=== PATIENT | male | born 1945 | race Caucasian/White ===

== ENCOUNTER → 2017-05-01 06:36 | Outpatient (CLI) | payer MEDICARE, SELFPAY ==
[2017-05-01 10:16] LABS: BUN 20 mg/dL (7-18); Creatinine, Serum 1.15 mg/dL (0.70-1.30); EST Glomerular Filtration Rate 67 mL/min (>60); Glucose 123 mg/dL (74-106)
[2017-05-01 10:17] LABS: ALB/GLOB Ratio 1.1 RATIO (0.9-2.4); AST(SGOT) 22 U/L (15-37); Alanine Aminotransfer ALT/SGPT 46 U/L (16-61); Albumin, Serum 3.6 g/dL (3.2-5.0); Alkaline Phosphatase 110 U/L (45-117); Anion Gap 8 (5-15); BUN/Creat Ratio 17.4 RATIO (10-20); Calcium,Total 8.5 mg/dL (8.5-10.1); Chloride 106 mmol/L (98-107); Est Glom Filt Rate - Afr Amer 81 mL/min (>60); Globulin 3.3 g/dL (2.2-4.2); PSA,Total- Diagnostic 0.48 ng/mL (0.0-4.0); Potassium 4.5 mmol/L (3.5-5.1); Protein, Total 6.9 g/dL (6.4-8.2); Sodium Level 141 mmol/L (136-145); Thyroid Stim Hormone (TSH) 1.06 uIU/mL (0.358-3.74)
--- NOTE | 2017-05-01 11:11 | STRESSREP_ITS ---
Stress Test Report Exercise myocardial perfusion stress test. 72-year-old man with a history of chest pain. Stress protocol: Resting EKG demonstrates sinus rhythm with a rate of 62 bpm. Resting blood pressure is 160/82 mmHg. The patient exercised according to the regular Edward protocol for total duration of 6 minutes and 31 seconds. The maximum heart rate attained was 139 bpm which was 93% of the maximum predicted heart rate the maximum workload attained was 7.7 metabolic equivalents. At rest there were no ST or T-wave changes noted suggest ischemia at peak exercise there was mild less than [address] depression noted in leads II and III with rapid reversal back to upsloping. These did not meet the criteria for ischemia. Patient however developed mild chest tightness and moderate dyspnea at peak exercise. The resting blood pressure was 160/82 mmHg with a peak blood pressure of 220/82 mmHg. Occasional premature ventricular complexes were noted. Myocardial perfusion protocol. 914.3 mCi of technetium 99m sestamibi was injected at rest. The patient exercised according to the Edward protocol for 6-1 /2 minutes attaining 7.7 metabolic equivalents and at peak exercise 44.7 mCi of technetium 99m sestamibi was injected. Stress images were obtained. Stress and rest images were reconstructed and compared in the short axis vertical long and horizontal long axis. Gated images were also obtained. Perfusion SPECT analysis: ReView of the stress images demonstrate uniform uptake of tracer noted in all areas of the myocardium the resting images appear to demonstrate a similar patent with no areas of reversibility noted to suggest ischemia. No previous infarct is noted. Gated SPECT analysis: The gated ejection fraction is noted to be 63%. Conclusion: Normal exercise myocardial perfusion stress test with no evidence of ischemia. Chest pain and angina cannot be completely excluded. Preserved ejection fraction.
== END ==
PROVIDERS: Family Provider Family Medicine; PCP Family Medicine; Visit Provider Family Medicine
DX: R07.9 Chest pain, unspecified (principal); E11.9 Type 2 diabetes mellitus without complications
CPT/HCPCS: 36415; 78452; 80053; 84153; 84443; 93017; A9500; A4216

== ENCOUNTER → 2017-10-09 09:36 | Outpatient (CLI) | payer MEDICARE, SELFPAY ==
[2017-10-09 12:10] LABS: Anion Gap 9 (5-15); BUN 21 mg/dL (7-18); BUN/Creat Ratio 15.3 RATIO (10-20); Calcium,Total 8.7 mg/dL (8.5-10.1); Chloride 108 mmol/L (98-107); Creatinine, Serum 1.37 mg/dL (0.70-1.30); EST Glomerular Filtration Rate 54 mL/min (>60); Est Glom Filt Rate - Afr Amer 66 mL/min (>60); Glucose 122 mg/dL (74-106); Potassium 4.8 mmol/L (3.5-5.1); Sodium Level 140 mmol/L (136-145)
== END ==
PROVIDERS: Family Provider Family Medicine; PCP Family Medicine; Visit Provider Family Medicine
DX: I10 Essential (primary) hypertension (principal)
CPT/HCPCS: 36415; 80048

== ENCOUNTER → 2017-11-03 10:08 | Outpatient (CLI) | payer MEDICARE, SELFPAY ==
[2017-11-03 12:05] LABS: PSA,Total- Diagnostic 0.44 ng/mL (0.0-4.0)
== END ==
PROVIDERS: Family Provider Family Medicine; PCP Family Medicine; Visit Provider Urology
DX: C61 Malignant neoplasm of prostate (principal)
CPT/HCPCS: 36415; 84153

== ENCOUNTER 2018-04-18 09:03 | Inpatient (IN) | payer MEDICARE, SELFPAY ==
--- NOTE | 2018-03-26 13:22 | HP.PCM_ITS ---
History and Physical DATE OF SURGERY: 04/18/2018 SCHEDULED PROCEDURE: right total hip arthroplasty HISTORY OF PRESENT ILLNESS: This is a 73-year-old male who has been having ongoing pain in his right hip for several years. He states it has increased over the past several weeks. Patient states the pain can reach as high as a 6/10. He has increased pain with driving, sitting for extended periods of time, and standing. Pain is intermittent, aching, sharp, and sore. He does complain of right groin pain. Patient states the pain does wake him at night. He does have start up pain. Patient states he has difficult time with activities of daily living including getting dressed as well as leisure activities such as woodworking and golfing. He has tripped and stumbled secondary to his right hip. He feels unsafe going on long drives due to the pain. Patient has tried oral medications consisting of Aleve with minimal relief. Patient denies previous surgery on the right hip. Patient currently denies chest pain, shortness of breath, fevers chills, or recent infections. After failing conservative measures and discussing treatment options at Dr. Marck Gorman, the patient would like to proceed with a right total hip arthroplasty. We are obtaining surgical clearance from the primary care physician. REVIEW OF SYSTEMS: ROS: Const: Denies anorexia, change in appetite, fever, hard of hearing, vision problems and weight change. CV: Denies chest pain, heart murmur, irregular heartbeat and peripheral vascular disease. Resp: Denies asthma, cough, pneumonia, sleep apnea, SOB, tuberculosis and wheezing. GI: Denies constipation, diarrhea, difficulty swallowing, heartburn, nausea, bloody stools and vomiting. : Urinary: denies incontinence. Musculo: Denies leg swelling, limp, trouble walking and weakness. Skin: Denies Raynaud's, history of shingles and tattoo. Neuro: Denies ambulatory dysfunction, dizziness, numbness/tingling and tremor. Psych: Denies anxiety, depression, insomnia, mental illness and stress. Gerard/Lymph: Denies anemia, bleeding/bruising tendency and past transfusion. Reviewed, no changes. 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 SOCIAL HISTORY: SH: Marital: .Occupation: Retired.Work Status: Retired.Hand Dominance: Left- handed. Personal Habits: Cigarette Use: Former - 1 PACK PER DAY / 34 YEARS.Alcohol: Denies use.Drug Use: Denies Use.Enjoy Exercising: Exercises 1-3 X/Week. Reviewed, no changes. VITALS: Ht: 71 Wt: 229lb Wt k.874 BMI: 31.9 BP: 140/57 Pulse: 89 Resp: 16 T: 96.9 T: 36.1C ALLERGIES: No Known Drug Allergy MEDICATIONS: Atorvastatin Calcium 80 mg daily, Niacin 500 mg tid, Folic Acid 400 mcg daily, Joint Soother , Lisinopril 10 mg 1 po qd, Metformin HCL ER (Mod) 500 mg 1po qday, Aleve 220 mg 1po qday PRE-OP EXAM: General appearance:NORMAL Other: Eyes: Conjunctivae and lids: NORMAL Pupils: ERR Ears, Nose, Mouth, and Throat: NORMAL Other: Inspection of lips, teeth and gums: NORMAL Other: Neck: Examination of neck: no masses noted. Respiratory: Assessment of respiratory effort: NORMAL Other: Auscultation of lungs: clear to auscultation no wheezes, rhonchi or rales. Cardiovascular: Auscultation of heart: regular rate and rhythm, no murmurs, gallops or rubs. Exam of carotid arteries: NORMAL Other: Gastrointestinal: Exam of abdomen: soft, nontender, nondistended bowel sounds present. PHYSICAL EXAMINATION: Patient walks with an antalgic gait. Patient has increased pain with range of motion of the right hip. Right hip flexion 80, internal rotation to neutral, external rotation 25. Sensation intact to light touch. Neurovascularly intact. IMAGING STUDIES: X-rays of the right hip reveal joint space narrowing with subchondral sclerosis and osteophyte formation consistent with severe osteoarthritis. IMPRESSION: 1. Severe right hip osteoarthritis 2. Hypertension 3. Type 2 diabetes mellitus 4. History of kidney stones 5. Psoriasis 6. History of prostate cancer in 2014 PLAN: Dr. Marck Gorman did discuss and review with the patient all treatment options including surgical versus nonsurgical options. Patient does wish to proceed with the above-stated procedure. Potential risks, benefits, and complications of the procedure were discussed in detail including but not limited to , infection, nerve and blood vessel damage, persistent pain, numbness, tingling, paresthesias, blood clot, pulmonary embolism, and requirement for possible further surgery. The patient expressed full understanding and has no further questions for the doctor. Patient does agree to proceed with the above-stated procedure and has signed the surgery consent form. This dictation was created using voice recognition software. Phonetic and/or grammatical errors may exist.. ___ I have re-examined the patient. There are no clinical changes since date of exam. ___ See progress notes for changes. ___ Dictated on admission Date: Time: Signature:
[2018-03-26 14:16] VITALS: BP 136/67; PULSE 74; RESP 18; TEMP 37.1; O2SAT 97; BMI 32.1
--- NOTE | 2018-03-26 14:34 | SDCEKG_ITS ---
Test Reason : Blood Pressure : / mmHG Vent. Rate : 071 BPM Atrial Rate : 071 BPM P-R Int : 184 ms QRS Dur : 102 ms QT Int : 388 ms P-R-T Axes : 048 003 032 degrees QTc Int : 421 ms Sinus rhythm with Premature atrial complexes RSR' or QR pattern in V1 suggests right ventricular conduction delay Borderline ECG Confirmed by DHRUV CRUZ, IAN ([id number]), manager editorial FRANCIS KOO ([id number]) on 03/27/2018 9:41:52 AM Referred By: Marck Gorman Confirmed By:IAN BARTLETT MD
[2018-03-26 15:26] LABS: Absolute Neutrophil Count 6.1 X10^3/uL (2.0-7.7); Anion Gap 9 (5-15); BUN 25 mg/dL (7-18); BUN/Creat Ratio 18.4 RATIO (10-20); Basophil# 0.01 X10^3/uL; Basophil% 0.1 % (0-1); Calcium,Total 8.3 mg/dL (8.5-10.1); Chloride 107 mmol/L (98-107); Creatinine, Serum 1.36 mg/dL (0.70-1.30); EST Glomerular Filtration Rate 55 mL/min (>60); Eosinophil# 0.13 X10^3/uL; Eosinophils% 1.7 % (0-5); Est Glom Filt Rate - Afr Amer 66 mL/min (>60); Estimated Creatinine Clearance 52.29 ml/min; Glucose 181 mg/dL (74-106); Hematocrit 41.7 % (40-54); Hemoglobin 13.5 g/dl (13.0-16.5); Lymphocyte % 10.5 % (19-41); Mean Corp Hgb Conc 32.4 g/gl (32-36); Mean Corpuscular Hgb 29.7 pg (27.0-32.0); Mean Corpuscular Volume 91.9 fL (80-94); Mean Platelet Vol. 11.1 fl (6.2-12.0); Monocyte# 0.65 X10^3/uL; Monocyte% 8.5 % (0-10); Neutrophil # 6.06 X10^3/uL (2.7-7.7); Neutrophil % 79.2 % (47-70); Platelet Count 139 K/mm3 (150-450); Potassium 3.9 mmol/L (3.5-5.1); RBC Distribution Width CV 12.4 % (11.6-14.6); RBC Distribution Width SD 41.7 fl (35.1-43.9); Red Blood Count 4.54 M/mm3 (4.6-6.2); Sodium Level 142 mmol/L (136-145); White Blood Count 7.7 K/mm3 (4.4-11.0)
[2018-03-26 15:33] LABS: POSITIVE COUNT NO; POSITIVE DIFFERENTIAL NO; POSITIVE MORPHOLOGY NO
[2018-03-26 16:31] LABS: Hemoglobin A1c 7.2 % (4.2-6.3)
[2018-03-29 14:19] LABS: Albumin, Serum 3.9 g/dL (3.2-5.0)
[2018-04-18] VITALS (11 sets, daily range): BP systolic 87–150; BP diastolic 48–73; PULSE 59–97; RESP 16–18; TEMP 36.2–36.9; O2SAT 92–100; BMI 32.1
[2018-04-18] MEDS: Scopolamine 1mg/72hr Patch 1 PATCH TD (07:15)
[2018-04-18] MEDS: Acetaminophen 500 MG Tablet 1000 MG PO ×2 (09:34→22:20)
[2018-04-18] MEDS: Celecoxib 200 MG Capsule 400 MG PO (09:34)
[2018-04-18] MEDS: oxyCODONE HCl Cr 10 MG Tablet PO (09:36)
[2018-04-18 09:50] LABS: Bedside Glucose 131 mg/dL (70-110)
[2018-04-18] MEDS: Lactated Ringers 1,000 ML 999 ML IV ×2 (09:50→13:08)
[2018-04-18] MEDS: Cefazolin 2 GM in 0.9% Normal Saline 100 ML IV (10:33)
--- NOTE | 2018-04-18 11:15 | RAD_ITS ---
STUDY: X-RAY - RIGHT HIP REASON FOR EXAM: Male, 73 years old. Anterior right hip replacement. TECHNIQUE: 2 views of the hip. COMPARISON: None. FINDINGS: Intraoperative fluoroscopic services provided for right anterior hip replacement. RAD/Hip 1 view with Pelvis IMPRESSION: Intraoperative fluoroscopic services provided for right anterior hip replacement. Electronically Signed: Howard Montejo MD at 14:08 EST , Service support ,
--- NOTE | 2018-04-18 12:06 | PCM.OPRPT ---
Report of Operation Date of Procedure: 04/18/18 Pre-Operative Diagnosis: Right hip primary asked arthritis, hypertrophic arthritis Post-Operative Diagnosis: Right hip primary asked arthritis, hypertrophic arthritis Surgery/Procedure Performed:: Right direct anterior total hip replacement Description of Surgical Findings:: Stable hip with equal leg lengths broaching machine repairer: Afshin Sauer Type of Anesthesia:: Spinal Anesthesiologist: Jose Guajardo Special Medications: 2 g Ancef, 1 g TXA at incision, 1 g TXA closure, 10 mg Decadron, joint cocktail (5 mg Duramorph, 30 mL of 0.5% Ropivicaine, 1000 units of epinephrine, 30 mg of Toradol) Specimen's removed: Bony cuts Estimated Blood Loss (mL): 200 Fluids Replaced: 1200 mL crystalloid Description of Procedure: Components used: 1. Accolade 2 Stephen femoral stem size 5 127? 2. Stephen trident 2 acetabular shell size 56 mm 3. Stephen X3 polyethylene F 4. [place] Biolox delta 36mm, 2.5mm femoral head Brief history operative indications: 73 yo M who failed conservative measures for their hip osteoarthritis. X-rays were consistent with osteoarthritis including joint space narrowing, osteophyte formation and subchondral cysts. Total hip replacement was discussed with the patient with risks and benefits including but not limited to blood loss, DVTs, PEs, neurovascular damage, dislocation, general risks of anesthesia including loss of life. Patient demonstrated an understanding medical clearance is obtained the patient was consented for surgery. Procedure: On the date of procedure the patient's R hip was marked in the preoperative area. Patient was then taken back to the operating room where anesthesia assumed control of the C-spine and airway and administered anesthetic. Patient was transferred to the operating table and placed in the supine position. The hips were placed at the break of the bed and a sacral bump was placed. The R lower extremity was then prepped out in a sterile fashion using chlorhexidine while the surgeon scrubbed. The PA was vital in the positioning of the patient. Upon reentering the room the R lower extremity was draped in the standard orthopedic fashion and the incision was marked. A timeout was called and everyone agreed upon the side, the site, the procedure be performed, antibody given, and patient's identity. At this time incision was made through skin, subcutaneous tissue, and fat down to fascia. The fascia was then incised and the TFL was retracted laterally. A retractor was placed on the lateral border of the femoral neck. Attention was directed to the inferior portion of the approach and all crossing vessels were identified and appropriately coagulated. A retractor was then placed on the medial portion of the femoral neck. The anterior capsule was then cleared of all soft tissue and then H shaped capsulotomy was made. The retractors were then placed inside the capsule. The femoral neck was identified and a cleanup cut was made. At this time a power corkscrew was used to remove the femoral head. Attention was then turned toward the acetabulum where the soft tissues were appropriately retracted and the acetabulum was sequentially reamed to 56 mm. A 56 mm cup was then selected and impacted into place. Acetabular liner was impacted into place and locking mechanism was verified. The position of the acetabular cup was then verified under live fluoroscopy. Attention was then turned to the femur. Soft tissue releases on the medial and lateral femoral neck were appropriately done, the leg was externally rotated and lateralized. A Castellano retractor was placed medially and proximally to the greater trochanter this allowed appropriate visualization and exposure of the femoral canal. Rongeour was then used to remove excess lateral bone. A canal finder and entry broach were used to open the proximal canal. Once we verified we were down the femoral canal we subsequently broached up to a size 5 femur. The appropriate neck was placed in the previously selected head was trialed with a 2.5 mm neck. Traction was pulled and the hip was reduced with internal rotation. Once it was appropriately reduced and stability was checked. There was minimal shuck, equal leg lengths and appropriate stability with hyperextension and external rotation as well as with 90? flexion and internal rotation. Fluoroscopy was then also used to verify the position of the components and leg lengths using the contralateral side for comparison. The trial components were then dislocated the proximal femur was again exposed and the components were removed from the wound. The final components were verified and opened. The wound was copiously irrigated out with normal saline. The acetabulum was checked for any residual debris. The final components were placed and impacted. Traction and internal rotation were again used to reduce the hip. After adequate reduction the hip remained stable with appropriate leg lengths. The final components were once again checked with live fluoroscopy and were found to be satisfactory. The wound was then copiously irrigated with normal saline once more, and hemostasis was obtained. Closure was then done using #1 Vicryl runner to close the fascia. A 2-0 vicryl interuppted sutures were used to close the subcutaneous skin. A 3-0 Monocryl and Steri-Strips were used for final skin closure. A Silverlon dressing was placed. Patient was awakened by anesthesia and transferred to the [facility]. Patient was then transferred to the PACU for recovery. Postoperative plan: Patient will get 24 hours postop antibiotics. Patient will get in-house physical therapy and will be weight-bear as tolerated. Patient will follow up in office in 2 weeks for a wound check and x-rays. Grafts/Implants Used: Stephen Accolade 2, Trident 2 - Complications None - Admit VTE Documentation VTE Present on Admission: No VTE Mechan Device Prophylaxis: SCD's, Thigh High JENNIFER Hose VTE Pharm Prophylaxis ordered?: Yes
--- NOTE | 2018-04-18 12:09 | OP.PCM_ITS ---
Report of Operation Date of Procedure: 04/18/18 Pre-Operative Diagnosis: Right hip primary asked arthritis, hypertrophic a rthritis Post-Operative Diagnosis: Right hip primary asked arthritis, hypertrophic arthritis Surgery/Procedure Performed:: Right direct anterior total hip replacement Description of Surgical Findings:: Stable hip with equal leg lengths shank sander: Afshin Sauer Type of Anesthesia:: Spinal Anesthesiologist: Jose Guajardo Special Medications: 2 g Ancef, 1 g TXA at incision, 1 g TXA closure, 10 mg Decadron, joint cocktail (5 mg Duramorph, 30 mL of 0.5% Ropivicaine, 1000 units of epinephrine, 30 mg of Toradol) Specimen's removed: Bony cuts Estimated Blood Loss (mL): 200 Fluids Replaced: 1200 mL crystalloid Description of Procedure: Components used: 1. Accolade 2 [place] femoral stem size 5 127? 2. [place] trident 2 acetabular shell size 56 mm 3. Stephen X3 polyethylene F 4. [place] Biolox delta 36mm, 2.5mm femoral head Brief history operative indications: 73 yo M who failed conservative measures for their hip osteoarthritis. X-rays were consistent with osteoarthritis including joint space narrowing, osteophyte formation and subchondral cysts. Total hip replacement was discussed with the patient with risks and benefits including but not limited to blood loss, DVTs, PEs, neurovascular damage, dislocation, general risks of anesthesia including loss of life. Patient demonstrated an understanding medical clearance is obtained the patient was consented for surgery. Procedure: On the date of procedure the patient's R hip was marked in the preoperative area. Patient was then taken back to the operating room where anesthesia assumed control of the C-spine and airway and administered anesthetic. Patient was transferred to the operating table and placed in the supine position. The hips were placed at the break of the bed and a sacral bump was placed. The R lower extremity was then prepped out in a sterile fashion using chlorhexidine while the surgeon scrubbed. The PA was vital in the positioning of the patient. Upon reentering the room the R lower extremity was draped in the standard orthopedic fashion and the incision was marked. A timeout was called and everyone agreed upon the side, the site, the procedure be performed, antibody given, and patient's identity. At this time incision was made through skin, subcutaneous tissue, and fat down to fascia. The fascia was then incised and the TFL was retracted laterally. A retractor was placed on the lateral border of the femoral neck. Attention was directed to the inferior portion of the approach and all crossing vessels were identified and appropriately coagulated. A retractor was then placed on the medial portion of the femoral neck. The anterior capsule was then cleared of all soft tissue and then H shaped capsulotomy was made. The retractors were then placed inside the capsule. The femoral neck was identified and a cleanup cut was made. At this time a power corkscrew was used to remove the femoral head. Attention was then turned toward the acetabulum where the soft tissues were appropriately retracted and the acetabulum was sequentially reamed to 56 mm. A 56 mm cup was then selected and impacted into place. Acetabular liner was impacted into place and locking mechanism was verified. The position of the acetabular cup was then verified under live fluoroscopy. Attention was then turned to the femur. Soft tissue releases on the medial and lateral femoral neck were appropriately done, the leg was externally rotated and lateralized. A Castellano retractor was placed medially and proximally to the greater trochanter this allowed appropriate visualization and exposure of the femoral canal. Rongeour was then used to remove excess lateral bone. A canal finder and entry broach were used to open the proximal canal. Once we verified we were down the femoral canal we subsequently broached up to a size 5 femur. The appropriate neck was placed in the previously selected head was trialed with a 2.5 mm neck. Traction was pulled and the hip was reduced with internal rotation. Once it was appropriately reduced and stability was checked. There was minimal shuck, equal leg lengths and appropriate stability with hyperextension and external rotation as well as with 90? flexion and internal rotation. Fluoroscopy was then also used to verify the position of the components and leg lengths using the contralateral side for comparison. The trial components were then dislocated the proximal femur was again exposed and the components were removed from the wound. The final components were verif ied and opened. The wound was copiously irrigated out with normal saline. The acetabulum was checked for any residual debris. The final components were placed and impacted. Traction and internal rotation were again used to reduce the hip. After adequate reduction the hip remained stable with appropriate leg lengths. The final components were once again checked with live fluoroscopy and were found to be satisfactory. The wound was then copiously irrigated with normal saline once more, and hemostasis was obtained. Closure was then done using #1 Vicryl runner to close the fascia. A 2-0 vicryl interuppted sutures were used to close the subcutaneous skin. A 3-0 Monocryl and Steri-Strips were used for final skin closure. A Silverlon dressing was placed. Patient was awakened by anesthesia and [facility] Patient was then transferred to the PACU for recovery. Postoperative plan: Patient will get 24 hours postop antibiotics. Patient will get in-house physical therapy and will be weight-bear as tolerated. Patient will follow up in office in 2 weeks for a wound check and x-rays. Grafts/Implants Used: Stephen Accolade 2, Trident 2 - Complications None - Admit VTE Documentation VTE Present on Admission: No VTE Mechan Device Prophylaxis: SCD's, Thigh High JENNIFER Hose VTE Pharm Prophylaxis ordered?: Yes
--- NOTE | 2018-04-18 12:43 | RAD_ITS ---
STUDY: X-RAY - RIGHT HIP REASON FOR EXAM: Male, 73 years old. Total hip replacement. TECHNIQUE: 2 views of the hip. COMPARISON: Comparison is made with prior examination done earlier in the day. FINDINGS: The patient is status post right total hip replacement. There is good alignment. Postoperative soft tissue changes. RAD/Hip Min 2 Views (Portable) IMPRESSION: Status post right total hip replacement. There is good alignment. Postoperative soft tissue changes. Electronically Signed: Howard Montejo MD at 14:39 EST , Service support ,
[2018-04-18 13:06] LABS: Bedside Glucose 149 mg/dL (70-110)
[2018-04-18] MEDS: Famotidine 20 MG Tablet PO (15:28)
[2018-04-18] MEDS: Lactated Ringers 1,000 ML 125 ML IV (15:42)
--- NOTE | 2018-04-18 16:56 | PCM.PROGNOTE ---
Objective: Consulted for right total hip medical management. Pt underwent surgery this AM. He is doing well. Has ambulated. No pain at all at the moment. No numbness or tingling. No N/V. No SOB/Cough. Encouraged IS use. No fever or chills. Plans to go home tomorrow for o/p PT @ [facility]. - Physical Exam General: Alert, Oriented x3, Cooperative HEENT: Atraumatic, PERRLA, EOMI, Normocephalic Neck: Supple, No JVD, Negative Carotid Bruits Lungs: Clear to auscultation, Normal air movement Cardiovascular: Regular rate, No murmurs Abdomen: Bowel Sounds Present, Soft, Non Tender Extremities: No edema, Capillary Refill Less than 3 Seconds Skin: No rashes, No breakdown Musculoskeletal: No Tenderness to Palpation of Joints or Extremities Neurological: Cranial nerves II-XII grossly intact Psych/Mental Status: Normal Affect, Appropriate Vital Signs Temp Pulse Resp BP Pulse Ox 97.8 F 59 L 18 109/51 L 95 04/18/18 14:42 04/18/18 14:42 04/18/18 16:08 04/18/18 14:42 04/18/18 16:08 Oxygen Delivery Method Room Air Weight: 229 lb 15.074 oz Body Mass Index (BMI) 32.1 Finger Stick Blood Glucose 149 Intake and Output for Last 24 Hours 04/16/18 04/17/18 04/18/18 23:59 23:59 23:59 Intake Total 1800 / 1800 Balance 1800 / 1800 POC Glucose 04/18/18 04/18/18 13:01 09:27 POC Glucose 149 H 131 H Medical Necessity - Tobacco Use Smoking Status: Former smoker Tobacco Use: Cigarettes Assessment/Plan All Active Problems (Last Updated 07/14/17 @ 10:33 by Chantelle Butcher) URI, acute (Acute) 1. Right hip osteoarthritis s/p right total hip POD#0 - Per Dr. Gorman. Resting comfortably with no pain in chair. Ambulated today, somewhat wobbly. No complaints. Outpatient physical therapy at discharge. Otherwise management per Dr. Gorman. Perioperative cefazolin, tranexamic acid 2. DMt2 - resume metformin at DC. SSI. A1C 7.2. 3. CKDIII - presumed based on records of renal function. BMP in AM. NSAIDs with caution. 4. HTN - stable 5. HLD - on statin 6. Hx Prostate CA 7. Hx Renal calculi 8. Hx Psoriasis DVT ppx: aspirin 81 bid per ortho Thank you for the opportunity to participate in the care of this patient. This patient was seen by Román Quezada PA-C under the supervision of Dr. Ness.
[2018-04-18 17:00] LABS: Bedside Glucose 100 mg/dL (70-110)
[2018-04-18] MEDS: Glucerna Shake 120 ML LIQUID PO (17:00)
[2018-04-18] MEDS: Aspirin 81 MG TAB.CHEW PO (17:01)
[2018-04-18] MEDS: Lisinopril 20 MG Tablet PO (18:33)
[2018-04-18] MEDS: Cefazolin 1 GM/50 ML BAG IV (18:33)
[2018-04-18] MEDS: Senna/Docusate Sodium 1 Tablet 2 TABLET PO (22:20)
[2018-04-18] MEDS: Atorvastatin Calcium 40 MG Tablet PO (22:21)
[2018-04-18 22:35] LABS: Bedside Glucose 115 mg/dL (70-110)
[2018-04-19] MEDS: oxyCODONE 5 MG Tablet PO ×3 (00:11→11:49)
[2018-04-19] MEDS: Ketorolac 15 MG/ML Vial IV (00:11)
[2018-04-19] MEDS: Lactated Ringers 1,000 ML 125 ML IV (00:17)
[2018-04-19 00:25] VITALS: BP 156/56; PULSE 79; RESP 18; TEMP 36.6; O2SAT 98
[2018-04-19 01:45] VITALS: BP 136/50; PULSE 95; RESP 16; TEMP 36.7; O2SAT 95
[2018-04-19] MEDS: Cefazolin 1 GM/50 ML BAG IV (03:06)
[2018-04-19 06:04] LABS: Hematocrit 32.4 % (40-54); Hemoglobin 10.5 g/dl (13.0-16.5); Mean Corp Hgb Conc 32.4 g/gl (32-36); Mean Corpuscular Hgb 30.1 pg (27.0-32.0); Mean Corpuscular Volume 92.8 fL (80-94); Mean Platelet Vol. 10.8 fl (6.2-12.0); Platelet Count 102 K/mm3 (150-450); RBC Distribution Width CV 12.3 % (11.6-14.6); RBC Distribution Width SD 40.6 fl (35.1-43.9); Red Blood Count 3.49 M/mm3 (4.6-6.2); White Blood Count 8.7 K/mm3 (4.4-11.0)
[2018-04-19 06:07] LABS: Scan Indicated on CBC? Y/N NO
[2018-04-19 06:15] LABS: Anion Gap 10 (5-15); BUN 21 mg/dL (7-18); BUN/Creat Ratio 15.1 RATIO (10-20); Calcium,Total 7.7 mg/dL (8.5-10.1); Chloride 103 mmol/L (98-107); Creatinine, Serum 1.39 mg/dL (0.70-1.30); EST Glomerular Filtration Rate 53 mL/min (>60); Est Glom Filt Rate - Afr Amer 65 mL/min (>60); Estimated Creatinine Clearance 51.16 ml/min; Glucose 113 mg/dL (74-106); Potassium 4.8 mmol/L (3.5-5.1); Sodium Level 138 mmol/L (136-145)
[2018-04-19] MEDS: Acetaminophen 500 MG Tablet 1000 MG PO ×2 (06:29→14:05)
[2018-04-19 06:35] VITALS: BP 169/73; PULSE 93; RESP 18; TEMP 36.6; O2SAT 97
[2018-04-19 06:46] LABS: Bedside Glucose 125 mg/dL (70-110)
[2018-04-19] MEDS: Famotidine 20 MG Tablet PO (07:59)
[2018-04-19] MEDS: hydroCHLOROthiazide 12.5mg 12.5 MG PO (07:59)
[2018-04-19] MEDS: Folic Acid 1 MG Tablet PO (07:59)
[2018-04-19] MEDS: Aspirin 81 MG TAB.CHEW PO (07:59)
[2018-04-19] MEDS: Lisinopril 20 MG Tablet PO (07:59)
[2018-04-19] MEDS: Meloxicam 7.5 MG Tablet PO (07:59)
[2018-04-19] MEDS: Senna/Docusate Sodium 1 Tablet 2 TABLET PO (07:59)
--- NOTE | 2018-04-19 09:26 | PN.ORTHO_ITS ---
Subjective: The patient was sitting in bedside chair upon examination. Patient denies any chest pain, shortness of breath, dizziness, lightheadedness, nausea or vomiting, or calf pain. Pain is controlled on medications. No adverse overnight events. Patient has tolerated physical therapy very well. Pain is been controlled. Patient does wish to try to go home today.. Objective: Vital signs stable and afebrile. Patient is able to plantarflex and dorsiflex actively. Sensation is intact to light touch to saphenous, sural, superficial and deep peroneal, and tibial distribution. Dressing is clean dry and intact. Negative Homans bilaterally, negative signs and symptoms of DVT. - Physical Exam General: Alert, Oriented x3, Cooperative, No apparent distress Vital Signs Temp Pulse Resp BP Pulse Ox 97.9 F 93 18 169/73 H 97 04/19/18 06:35 04/19/18 06:35 04/19/18 06:35 04/19/18 06:35 04/19/18 06:35 Oxygen Delivery Method Room Air Weight: 104.3 kg Body Mass Index (BMI) 32.1 Finger Stick Blood Glucose 149 Intake and Output for Last 24 Hours 04/17/18 04/18/18 04/19/18 23:59 23:59 23:59 Intake Total 1800 / 1800 4214 / 4214 Output Total 200 / 200 Balance 1800 / 1800 4014 / 4014 Laboratory Tests Past 24 Hrs 04/19/18 04/19/18 05:15 05:15 WBC 8.7 RBC 3.49 L Hgb 10.5 L Hct 32.4 L MCV 92.8 MCH 30.1 MCHC 32.4 RDW 12.3 RDW Differential 40.6 Plt Count 102 L MPV 10.8 Sodium 138 Potassium 4.8 Chloride 103 Carbon Dioxide 25.0 Anion Gap 10 BUN 21 H Creatinine 1.39 H Estim Creat Clear Calc 51.16 Est GFR (MDRD) Af Amer 65 Est GFR (MDRD) Non-Af 53 L BUN/Creatinine Ratio 15.1 Glucose 113 H Calcium 7.7 L POC Glucose 04/19/18 04/18/18 04/18/18 06:39 22:25 16:50 POC Glucose 125 H 115 H 100 04/18/18 04/18/18 13:01 09:27 POC Glucose 149 H 131 H Medical Necessity - Tobacco Use Smoking Status: Former smoker Tobacco Use: Cigarettes Assessment/Plan All Active Problems (Last Updated 07/14/17 @ 10:33 by Chantelle Butcher) URI, acute (Acute) 1. S/P direct anterior right total hip arthroplasty POD #1 2. Continue Pain Medications: Tylenol and OxyIR 3. DVT Prophylaxis: Aspirin 81 mg twice daily with food for 4 weeks postoperatively 4. PT/OT: Weightbearing as tolerated 5. H & H: 10.5/32.4, asymptomatic 6. Encouraged Incentive Spirometry 7. Continue postoperative medical management per medicine 8. Disposition: Plan will be for discharge home today. Prescriptions will be E scribed to [facility]. Patient will follow-up per postop instructions..
--- NOTE | 2018-04-19 09:51 | DCINST_ITS ---
Discharge Diet: 1800 Calorie Control Diet Discharge Activity: May Not Drive - while taking narcotic pain medications. May shower in (days): 1 - Turned dressing away from water Ice area for (Minutes): 20 - Every 1-2 hours while awake Weight Bearing Status: Weight bearing as tolerated Elevate: Operative Extremity Additional Activity Instructions:: Wear elastic stockings for 2 weeks. DO NOT use alcohol with narcotic pain medication. DO NOT make important decisions while taking narcotic medication. If you have problems with taking your medication (rash, itching, nausea, etc.) call the office at once. Call your doctor if your incision/area has: Increased Pain/ Swelling, Increased Redness, Foul Smelling Discharge Call your doctor if you observe: Fever of 101 or Higher Remove Dressing in (days):: 4 - Okay to remove dressing on April 23, 2018 Additional Instructions: Follow [facility] postop instructions. Do not take glucosamine chondroitin for 2 weeks postoperatively. Do not take any other nonsteroidal anti-inflammatory while taking the meloxicam. Allergies/Adverse Reactions: Allergies No Known Allergies Allergy (Verified 03/26/18 14:07) Medications to take at Discharge Atorvastatin Calcium [Lipitor] 40 mg PO QHS 07/25/14 Folic Acid 800 mcg PO DAILY 07/25/14 Niacin [Niacin ER] 1,000 mg PO DAILY 07/25/14 metformin ER 500 mg tablet,extended release 24 hr 500 mg PO DAILY 90 Days #90 07/14/17 Lisinopril/Hydrochlorothiazide [Lisinopril-Hctz 20-12.5 mg Tab] 20 mg PO DAILY 03/26/18 Acetaminophen [Tylenol] 1,000 mg PO Q8 #90 tablet 04/19/18 Aspirin [Aspirin, Baby] 81 mg PO BIDCM #60 tab.chew 04/19/18 Famotidine [Pepcid] 20 mg PO DAILY #30 tablet 04/19/18 Meloxicam [Mobic] 7.5 mg PO BID #60 tablet 04/19/18 Oxycodone [Oxyir] 5 - 10 mg PO Q4H PRN PRN 5 Days #60 tablet 04/19/18 Senna/Docusate Sodium [Senokot-S] 2 tablet PO BID #20 tablet 04/19/18 The following prescriptions were given: Oxycodone [Oxyir] 5 - 10 mg PO Q4H PRN PRN 5 Days #60 tablet PRN Reason: Mod-Severe Pain (4-10/10) Acetaminophen [Tylenol] 1,000 mg PO Q8 #90 tablet Famotidine [Pepcid] 20 mg PO DAILY #30 tablet Aspirin [Aspirin, Baby] 81 mg PO BIDCM #60 tab.chew Meloxicam [Mobic] 7.5 mg PO BID #60 tablet Senna/Docusate Sodium [Senokot-S] 2 tablet PO BID #20 tablet Orders to be completed after discharge: Basic Metabolic Profile (BMP) Time Frame: 1 Week, Location: Laboratory Primary Care Physician: Danny Ramos MD [Primary Care Provider] - Please follow up with your Primary Care Physician in: 1 week, will get repeat BMP. Test Results: Test results from this visit will be discussed in further detail at your follow- up appointment, if applicable. Please Follow Up With: [facility] When: 04/23/18 @ 9:00 am Please Follow Up With: Juan A Osborne PA-C When: 05/02/18 @ 9:00 am
--- NOTE | 2018-04-19 10:35 | CASEMGMT ---
ISSA PEÑALOZA Face to Face with patient for initial transition planning/care coordination assessment. RN CM introduced self and role at [facility]. Patient sitting in chair, alert and oriented, at bedside. Patient willing to participate in assessment and is able to answer all questions appropriately. Care providers, pharmacy, and demographics verified. Patient wishes to discharge home and is setup with [facility] for outpatient therapy beginning on 04/23/18 with providing transportation. Patient states he has no further needs or concerns at this time. CM to follow for discharge planning needs that may arise. PCP: Richard Specialists: [facility]; wily Gorman Preferred Pharmacy: [facility] Insurance: FIRE1 [facility] Prescription Benefit: Yes Living Will/HPOA: None LNOK: Living Arrangements: Patient lives with in 1 story home with 3 steps to enter home with railing. Patient is independent at home. Transportation: DME/HHC: Patient has tub bench, raised toilet seat, cane, and walker. Denies use of oxygen, bipap, cpap, or nebulizer at home. No previous HHC. Disposition Plan: Patient to discharge home with outpatient therapy, family support, and follow-up plans in place. Mari NO, RN, CM
[2018-04-19] MEDS: Glucerna Shake 120 ML LIQUID PO (11:50)
[2018-04-19 11:51] LABS: Bedside Glucose 100 mg/dL (70-110)
--- NOTE | 2018-04-19 13:17 | PCA ---
therapy working with pt
--- NOTE | 2018-04-19 14:28 | PCM.PN.HOSP ---
Subjective: Patient with no acute events overnight per self and per nursing report however he has had mildly elevated blood pressures and per discussion with patient he had stopped his hydrochlorothiazide approximately 5 days prior to his surgery per his physician recommendation. Discussed patient current presentation with noted creatinine 1.39 with comparison from prior similar since summer of this year in addition to hemoglobin A1c 7.2% and he notes prior to this was in the 6 range and this is steadily been increasing. Patient notes he has been less active and less strict with lifestyle and diet parameters since onset of hip discomfort this past summer. Patient notes pain control has improved and is working well with therapy and eager for discharge to home. Patient denies fevers, chills, nausea, emesis, abdominal pain, chest pain or dyspnea. Objective: Physical Examination: General: awake, alert, oriented x 3 and cooperative, seated upright in bedside chair, in no apparent distress. Skin: normal color, turgor, no icterus, cyanosis, s/p R THR, dressing in place. HEENT: AT/NC, EOMI, PERRLA, MMM. Lungs: CTA bilaterally, moderate effort, mild decrease BL bases, no rales, ronchi or wheezing. Heart: Regular rate and rhythm; no gallop, rub audible. Abdomen: soft, obesity, NTTP, ND, normal BS. Extremities: no cyanosis, clubbing, s/p R THR, dressing in place. Neurological: patient awake, alert, oriented x 3; cognitive function intact; pupils equally reactive to light and accomodation; cranial nerves II-XII grossly normal, moving all 4 extremities although decreased RLE as expected given R THR, strength accordingly moderately globally decreased. Psychiatric: affect appears normal, no acute evidence of depressive or anxiety feelings. Vitals/I&O's: Vital Signs Temp Pulse Resp BP Pulse Ox 97.9 F 93 18 169/73 H 97 04/19/18 06:35 04/19/18 06:35 04/19/18 06:35 04/19/18 06:35 04/19/18 06:35 Oxygen Delivery Method Room Air Weight: 229 lb 15.074 oz Body Mass Index (BMI) 32.1 Finger Stick Blood Glucose 149 Intake and Output for Last 24 Hours 04/17/18 04/18/18 04/19/18 23:59 23:59 23:59 Intake Total 1800 / 1800 4214 / 4214 Output Total 200 / 200 Balance 1799 4014 / 4014 Laboratory Results 04/18/18 16:50: POC Glucose 100 04/18/18 22:25: POC Glucose 115 H 04/19/18 05:15: WBC 8.7, RBC 3.49 L, Hgb 10.5 L, Hct 32.4 L, MCV 92.8, MCH 30.1, MCHC 32.4, RDW 12.3, RDW Differential 40.6, Plt Count 102 L, MPV 10.8 04/19/18 05:15: Sodium 138, Potassium 4.8, Chloride 103, Carbon Dioxide 25.0, Anion Gap 10, BUN 21 H, Creatinine 1.39 H, Estim Creat Clear Calc 51.16, Est GFR (MDRD) Af Amer 65, Est GFR (MDRD) Non-Af 53 L, BUN/Creatinine Ratio 15.1, Glucose 113 H, Calcium 7.7 L 04/19/18 06:39: POC Glucose 125 H 04/19/18 11:42: POC Glucose 100 Current Medications Acetaminophen (Tylenol) 1,000 mg PO Q8 [facility] Last Admin: 04/19/18 14:05 Dose: 1,000 mg Aspirin (A[facility]in, Baby) [facility] Last Admin: 04/19/18 07:59 Dose: 81 mg Atorvastatin Calcium (Lipitor) 40 mg PO QHS [facility] Last Admin: 04/18/18 22:21 Dose: 40 mg Famotidine (Pepcid) 20 mg PO DAILY [facility] Last Admin: 04/19/18 07:59 Dose: 20 mg Folic Acid (Folic Acid) [facility] Last Admin: 04/19/18 07:59 Dose: 1 mg Hydrochlorothiazide () 12.5 mg PO DAILY [facility] Last Admin: 04/19/18 07:59 Dose: 12.5 mg Insulin Human Lispro (Humalog Kwikpen (Bkc)) 0 unit SC [facility]; Protocol Last Admin: 04/19/18 11:44 Dose: Not Given Ketorolac Tromethamine (Toradol) 15 mg IV Q6H PRN PRN PRN Reason: MILD-MOD PAIN (1-07/27) Stop: 04/23/18 07:05 Last Admin: 04/19/18 00:11 Dose: 15 mg Lisinopril (Zestril) 20 mg PO DAILY [facility] Last Admin: 04/19/18 07:59 Dose: 20 mg Meloxicam (Mobic) 7.5 mg PO BID [facility] Last Admin: 04/19/18 07:59 Dose: 7.5 mg Metformin HCl (Glucophage Xr) 500 mg PO DAILY@1700 [facility] Last Admin: 04/18/18 17:01 Dose: 500 mg Morphine Sulfate () 2 - 4 mg IV Q2H PRN PRN PRN Reason: SEVERE PAIN (6-10/10) Morphine Sulfate () 2 - 4 mg IV Q2H PRN PRN PRN Reason: SEVERE PAIN (6-10/10) Niacin (Niaspan) 1,000 mg PO DAILY@0800 [facility] Last Admin: 04/19/18 07:59 Dose: 1,000 mg Nutritional Formula (Lactose Free) (Glucerna Shake) 120 ml PO TIDCM [facility] Last Admin: 04/19/18 11:50 Dose: 120 ml Ondansetron HCl (Zofran) 4 mg IV Q8H PRN PRN PRN Reason: NAUSEA Oxycodone HCl (Oxyir) 5 - 10 mg PO Q4H PRN PRN PRN Reason: MOD-SEVERE PAIN (4-10/10) Last Admin: 04/19/18 11:49 Dose: 10 mg Promethazine HCl (Phenergan) 12.5 mg IM Q6H PRN PRN; Protocol PRN Reason: NAUSEA/VOMITING Senna/Docusate Sodium (Senokot-S, Natacha-Colace) 2 tablet PO BID [facility] Last Admin: 04/19/18 07:59 Dose: 2 tablet Sodium Chloride () 5 - 15 ml IV UD PRN PRN Reason: SALINE FLUSH Medical Necessity - Tobacco Use Smoking Status: Former smoker Tobacco Use: Cigarettes Assessment/Plan All Active Problems (Last Updated 07/14/17 @ 10:33 by Chantelle Butcher) URI, acute (Acute) The patient is a 73 y/o M w/ PMHx: Diabetes mellitus type II, HTN, HLD, CKD stage III, History of Prostate CA, History of Nephrolithiasis, Psoriasis, Severe OA R hip who presents to the [facility] on 04/18/18 for planned R THR per Dr. Gorman. (1) Severe Osteoarthritis, R Hip: Failed conservative therapies and treatments, admitted per Dr. Gorman for planned R THR, post-operative pain management, bowel regimen, DVT Prophylaxis, PT/OT/CM per Orthopedic surgery discretion. (2) Chronic Kidney Disease Stage III: Admission BUN/Cr 25/1.36, baseline renal function 1.3 since Summer 2017, prior 1.0-1.1, recommended repeat BMP with PCP. (3) Diabetes mellitus type II: Hold oral home regimen, ADA diet, accu checks w/ ISS. Encouraged to improve diet and lifestyle changes especially now that patient will be able to be more active once he is cleared by orthopedic surgery status post right total hip replacement. (4) Hypertension: BP initially elevated, improved w/ restart home regimen, continue lisinopril, HCTZ with planned repeat BMP assessment given renal function changes to appearance baseline Cr 1.3 since Summer 2017 in case of alterations to this regimen, PRN hydralazine. Encouraged continued compliance with his medications and encouraged diet and as well as lifestyle changes. (5) Hyperlipidemia: Continue home statin regimen. (6) DVT Prophylaxis: SCDs, Code Visit Inpatient E&M: 72681 Subs Hosp L2
--- NOTE | 2018-04-19 14:38 | PN_ITS ---
Subjective: Patient with no acute events overnight per self and per nursing report however he has had mildly elevated blood pressures and per discussion with patient he had stopped his hydrochlorothiazide approximately 5 days prior to his surgery per his physician recommendation. Discussed patient current presentation with noted creatinine 1.39 with comparison from prior similar since summer of this year in addition to hemoglobin A1c 7.2% and he notes prior to this was in the 6 range and this is steadily been increasing. Patient notes he has been less a ctive and less strict with lifestyle and diet parameters since onset of hip discomfort this past summer. Patient notes pain control has improved and is working well with therapy and eager for discharge to home. Patient denies fevers, chills, nausea, emesis, abdominal pain, chest pain or dyspnea. Objective: Physical Examination: General: awake, alert, oriented x 3 and cooperative, seated upright in bedside chair, in no apparent distress. Skin: normal color, turgor, no icterus, cyanosis, s/p R THR, dressing in place. HEENT: AT/NC, EOMI, PERRLA, MMM. Lungs: CTA bilaterally, moderate effort, mild decrease BL bases, no rales, ronchi or wheezing. Heart: Regular rate and rhythm; no gallop, rub audible. Abdomen: soft, obesity, NTTP, ND, normal BS. Extremities: no cyanosis, clubbing, s/p R THR, dressing in place. Neurological: patient awake, alert, oriented x 3; cognitive function intact; pupils equally reactive to light and accomodation; cranial nerves II-XII grossly normal, moving all 4 extremities although decreased RLE as expected given R THR, strength accordingly moderately globally decreased. Psychiatric: affect appears normal, no acute evidence of depressive or anxiety feelings. Vitals/I&O's: Vital Signs Temp Pulse Resp BP Pulse Ox 97.9 F 93 18 169/73 H 97 04/19/18 06:35 04/19/18 06:35 04/19/18 06:35 04/19/18 06:35 04/19/18 06:35 Oxygen Delivery Method Room Air Weight: 229 lb 15.074 oz Body Mass Index (BMI) 32.1 Finger Stick Blood Glucose 149 Intake and Output for Last 24 Hours 04/17/18 04/18/18 04/19/18 23:59 23:59 23:59 Intake Total 1800 / 1800 4214 / 4214 Output Total 200 / 200 Balance 1799 4014 / 4014 Laboratory Results 04/18/18 16:50: POC Glucose 100 04/18/18 22:25: POC Glucose 115 H 04/19/18 05:15: WBC 8.7, RBC 3.49 L, Hgb 10.5 L, Hct 32.4 L, MCV 92.8, MCH 30.1, MCHC 32.4, RDW 12.3, RDW Differential 40.6, Plt Count 102 L, MPV 10.8 04/19/18 05:15: Sodium 138, Potassium 4.8, Chloride 103, Carbon Dioxide 25.0, Anion Gap 10, BUN 21 H, Creatinine 1.39 H, Estim Creat Clear Calc 51.16, Est GFR (MDRD) Af Amer 65, Est GFR (MDRD) Non-Af 53 L, BUN/Creatinine Ratio 15.1, Glucose 113 H, Calcium 7.7 L 04/19/18 06:39: POC Glucose 125 H 04/19/18 11:42: POC Glucose 100 Current Medications Acetaminophen (Tylenol) 1,000 mg PO Q8 [facility] Last Admin: 04/19/18 14:05 Dose: 1,000 mg [facility], [facility]) [facility] Last Admin: 04/19/18 07:59 Dose: 81 mg Atorvastatin Calcium (Lipitor) 40 mg PO QHS [facility] Last Admin: 04/18/18 22:21 Dose: 40 mg Famotidine (Pepcid) 20 mg PO DAILY [facility] Last Admin: 04/19/18 07:59 Dose: 20 mg Folic Acid (F[facility] Acid) [facility] Last Admin: 04/19/18 07:59 Dose: 1 mg Hydrochlorothiazide () 12.5 mg PO DAILY [facility] Last Admin: 04/19/18 07:59 Dose: 12.5 mg Insulin Human Lispro (Humalog Kwikpen (Bkc)) 0 unit SC [facility]; Protocol Last Admin: 04/19/18 11:44 Dose: Not Given Ketorolac Tromethamine (Toradol) 15 mg IV Q6H PRN PRN PRN Reason: MILD-MOD PAIN (1-5) Stop: 04/23/18 07:05 Last Admin: 04/19/18 00:11 Dose: 15 mg Lisinopril (Zestril) 20 mg PO DAILY [facility] Last Admin: 04/19/18 07:59 Dose: 20 mg Meloxicam (Mobic) 7.5 mg PO BID [facility] Last Admin: 04/19/18 07:59 Dose: 7.5 mg Metformin HCl (Glucophage Xr) 500 mg PO DAILY@1700 [facility] Last Admin: 04/18/18 17:01 Dose: 500 mg Morphine Sulfate () 2 - 4 mg IV Q2H PRN PRN PRN Reason: SEVERE PAIN (6-10/10) Morphine Sulfate () 2 - 4 mg IV Q2H PRN PRN PRN Reason: SEVERE PAIN (6-10/10) Niacin (Niaspan) 1,000 mg PO DAILY@0800 [facility] Last Admin: 04/19/18 07:59 Dose: 1,000 mg Nutritional Formula (Lactose Free) (Glucerna Shake) 120 ml PO TIDCM [facility] Last Admin: 04/19/18 11:50 Dose: 120 ml Ondansetron HCl (Zofran) 4 mg IV Q8H PRN PRN PRN Reason: NAUSEA Oxycodone HCl (Oxyir) 5 - 10 mg PO Q4H PRN PRN PRN Reason: MOD-SEVERE PAIN (4-10/10) Last Admin: 04/19/18 11:49 Dose: 10 mg Promethazine HCl (Phenergan) 12.5 mg IM Q6H PRN PRN; Protocol PRN Reason: NAUSEA/VOMITING Senna/Docusate Sodium (Senokot-S, Natacha-Colace) 2 tablet PO BID [facility] Last Admin: 04/19/18 07:59 Dose: 2 tablet Sodium Chloride () 5 - 15 ml IV UD PRN PRN Reason: SALINE FLUSH Medical Necessity - Tobacco Use Smoking Status: Former smoker Tobacco Use: Cigarettes Assessment/Plan All Active Problems (Last Updated 07/14/17 @ 10:33 by Chantelle Butcher) URI, acute (Acute) The patient is a 73 y/o M w/ PMHx: Diabetes mellitus type II, HTN, HLD, CKD stage III, History of Prostate CA, History of Nephrolithiasis, Psoriasis, Severe OA R hip who presents to the [facility] on 04/18/18 for planned R THR per Dr. Gorman. (1) Severe Osteoarthritis, R Hip: Failed conservative therapies and treatments, admitted per Dr. Gorman for planned R THR, post-operative pain management, bowel regimen, DVT Prophylaxis, PT/OT/CM per Orthopedic surgery discretion. (2) Chronic Kidney Disease Stage III: Admission BUN/Cr 25/1.36, baseline renal function 1.3 since Summer 2017, prior 1.0-1.1, recommended repeat BMP with PCP. (3) Diabetes mellitus type II: Hold oral home regimen, ADA diet, accu checks w/ ISS. Encouraged to improve diet and lifestyle changes especially now that patient will be able to be more active once he is cleared by orthopedic surgery status post right total hip replacement. (4) Hypertension: BP initially elevated, improved w/ restart home regimen, continue lisinopril, HCTZ with planned repeat BMP assessment given renal function changes to appearance baseline Cr 1.3 since Summer 2017 in case of alterations to this regimen, PRN hydralazine. Encouraged continued compliance with his medications and encouraged diet and as well as lifestyle changes. (5) Hyperlipidemia: Continue home statin regimen. (6) DVT Prophylaxis: SCDs, Code Visit Inpatient E&M: 83730 Subs Hosp L2
== END 2018-04-19 14:55 | disposition home or self-care (01) | DRG 470 ==
LOC: MS3 09:04
PROVIDERS: Admitting Provider Specialist; Family Provider Family Medicine; PCP Family Medicine; Referring Provider Specialist; Visit Provider Specialist
PROC: 0SR904A Replacement of Right Hip Joint with Ceramic on Polyethylene Synthetic Substitute, Uncemented, Open Approach (ICD-10-PCS; CPT 27284; principal; 2018-04-18 10:50)
DX: M16.11 Unilateral primary osteoarthritis, right hip (principal); E78.5 Hyperlipidemia, unspecified; I12.9 Hypertensive chronic kidney disease with stage 1 through stage 4 chronic kidney disease, or unspecified chronic kidney disease; E11.22 Type 2 diabetes mellitus with diabetic chronic kidney disease; N18.3 Chronic kidney disease, stage 3 (moderate); Z85.46 Personal history of malignant neoplasm of prostate; Z87.442 Personal history of urinary calculi; Z87.891 Personal history of nicotine dependence; Z79.84 Long term (current) use of oral hypoglycemic drugs
CPT/HCPCS: 36415; 73501; 73502; 76000; 80048; 82040; 82962; 83036; 85025; 85027; 87077; 87081; 93005; 97110; 97162; 97165; 97530; 99251; C1776; J7120; G0463

== ENCOUNTER → 2018-05-04 12:35 | Outpatient (CLI) | payer MEDICARE, SELFPAY ==
[2018-04-18 15:08] VITALS: BMI 32.1
== END ==
PROVIDERS: Family Provider Family Medicine; PCP Family Medicine; Referring Provider Urology; Visit Provider Urology
DX: C61 Malignant neoplasm of prostate (principal)
CPT/HCPCS: 36415; 84153

== ENCOUNTER → 2018-07-03 10:21 | Outpatient (CLI) | payer MEDICARE, SELFPAY ==
[2018-04-18 15:08] VITALS: BMI 32.1
[2018-07-03 12:36] LABS: Hematocrit 43.7 % (40-54); Mean Corpuscular Hgb 29.2 pg (27.0-32.0); Mean Platelet Vol. 11.3 fl (6.2-12.0); Platelet Count 160 K/mm3 (150-450); RBC Distribution Width CV 12.7 % (11.6-14.6); RBC Distribution Width SD 41.8 fl (35.1-43.9); White Blood Count 7.3 K/mm3 (4.4-11.0)
[2018-07-03 12:38] LABS: Scan Indicated on CBC? Y/N NO
[2018-07-03 13:10] LABS: ALB/GLOB Ratio 1.2 RATIO (0.9-2.4); AST(SGOT) 32 U/L (15-37); Alanine Aminotransfer ALT/SGPT 47 U/L (16-61); Alkaline Phosphatase 111 U/L (45-117); Anion Gap 7 (5-15); BUN 18 mg/dL (7-18); BUN/Creat Ratio 14.1 RATIO (10-20); Calcium,Total 8.6 mg/dL (8.5-10.1); Chloride 107 mmol/L (98-107); Creatinine, Serum 1.28 mg/dL (0.70-1.30); EST Glomerular Filtration Rate 59 mL/min (>60); Est Glom Filt Rate - Afr Amer 71 mL/min (>60); Globulin 3.4 g/dL (2.2-4.2); Glucose 99 mg/dL (74-106); Potassium 4.7 mmol/L (3.5-5.1); Protein, Total 7.4 g/dL (6.4-8.2); Sodium Level 140 mmol/L (136-145); Thyroid Stim Hormone (TSH) 0.96 uIU/mL (0.358-3.74)
[2018-07-03 13:13] LABS: Cholesterol 153 mg/dL (200); High Density Lipoprotein 33 mg/dL; Triglycerides 243 mg/dL; Very Low Density Lipoprotein 49 mg/dL (5-40)
== END ==
PROVIDERS: Family Provider Family Medicine; PCP Family Medicine; Referring Provider Family Medicine; Visit Provider Family Medicine
DX: E11.9 Type 2 diabetes mellitus without complications (principal); Z96.641 Presence of right artificial hip joint
CPT/HCPCS: 36415; 80053; 80061; 84443; 85027

== ENCOUNTER → 2018-11-08 09:01 | Outpatient (CLI) | payer MEDICARE, SELFPAY ==
[2018-04-18 15:08] VITALS: BMI 32.1
[2018-11-08 10:19] LABS: PSA,Total- Diagnostic 0.41 ng/mL (0.0-4.0)
== END ==
PROVIDERS: Family Provider Family Medicine; PCP Family Medicine; Referring Provider Urology; Visit Provider Urology
DX: C61 Malignant neoplasm of prostate (principal)
CPT/HCPCS: 36415; 84153

== ENCOUNTER → 2019-02-25 08:46 | Outpatient (CLI) | payer MEDICARE, SELFPAY ==
[2018-04-18 15:08] VITALS: BMI 32.1
[2019-02-25 10:52] LABS: ALB/GLOB Ratio 1.4 RATIO (0.9-2.4); AST(SGOT) 22 U/L (15-37); Alanine Aminotransfer ALT/SGPT 29 U/L (16-61); Albumin, Serum 4.1 g/dL (3.2-5.0); Alkaline Phosphatase 91 U/L (45-117); Anion Gap 8 (5-15); BUN 37 mg/dL (7-18); Calcium,Total 8.5 mg/dL (8.5-10.1); Chloride 109 mmol/L (98-107); Cholesterol 119 mg/dL (200); Creatinine, Serum 1.68 mg/dL (0.70-1.30); EST Glomerular Filtration Rate 43 mL/min (>60); Est Glom Filt Rate - Afr Amer 52 mL/min (>60); Glucose 122 mg/dL (74-106); High Density Lipoprotein 32 mg/dL; Potassium 4.5 mmol/L (3.5-5.1); Protein, Total 7.1 g/dL (6.4-8.2); Sodium Level 141 mmol/L (136-145); Triglycerides 155 mg/dL; Very Low Density Lipoprotein 31 mg/dL (5-40)
== END ==
PROVIDERS: Family Provider Family Medicine; PCP Family Medicine; Visit Provider Family Medicine
DX: E11.9 Type 2 diabetes mellitus without complications (principal)
CPT/HCPCS: 36415; 80053; 80061

== ENCOUNTER → 2019-04-23 15:19 | Outpatient (CLI) | payer MEDICARE, SELFPAY ==
[2018-04-18 15:08] VITALS: BMI 32.1
[2019-04-23 18:22] LABS: Anion Gap 5 (5-15); BUN 22 mg/dL (7-18); BUN/Creat Ratio 15.9 RATIO (10-20); Calcium,Total 8.6 mg/dL (8.5-10.1); Chloride 104 mmol/L (98-107); Creatinine, Serum 1.38 mg/dL (0.70-1.30); EST Glomerular Filtration Rate 54 mL/min (>60); Est Glom Filt Rate - Afr Amer 65 mL/min (>60); Glucose 135 mg/dL (74-106); Sodium Level 138 mmol/L (136-145)
== END ==
PROVIDERS: PCP Family Medicine; Referring Provider Family Medicine; Visit Provider Family Medicine
DX: I10 Essential (primary) hypertension (principal)
CPT/HCPCS: 36415; 80048

== ENCOUNTER 2019-04-26 11:49 | Observation (INO) | payer MEDICARE, SELFPAY ==
[2018-04-18 15:08] VITALS: BMI 32.1
[2019-04-26] VITALS (18 sets, daily range): BP systolic 142–162; BP diastolic 75–93; PULSE 69–110; RESP 15–25; TEMP 36.6–36.7; O2SAT 81–96; BMI 32.1; BMI 32.2; BMI 32.0
--- NOTE | 2019-04-26 12:00 | EKG12_ITS ---
Test Reason : CP Blood Pressure : / mmHG Vent. Rate : 080 BPM Atrial Rate : 080 BPM P-R Int : 168 ms QRS Dur : 128 ms QT Int : 406 ms P-R-T Axes : 044 -11 030 degrees QTc Int : 468 ms Normal sinus rhythm with sinus arrhythmia Right bundle branch block Minimal voltage criteria for LVH, may be normal variant Abnormal ECG Confirmed by LAMIN CRZU, VERÓNICA ([id number]), medical editor FRANCIS KOO ([id number] on 04/29/2019 11:17:09 AM Referred By: Confirmed By:CARLTON KIMBLE MD
--- NOTE | 2019-04-26 12:01 | ED.DCSUM_ITS ---
History of Present Illness Chief Complaint: Chest Pain Informant: Patient Onset: Today Context: Sudden Onset Current Severity: Mild Maximum Severity: Severe Narrative: Patient presents with rather abrupt onset of chest pain approximate 1 hour prior to arrival. He describes it as sharp, heavy, and aching. He had increased shortness of breath. EMS was called and patient states symptoms seemed to improve after receiving nitro and aspirin. He was also placed on oxygen. Patient denies known history of lung problems. He was recently on amoxicillin for sinus infection. He does have continued cough with productive sputum. - Past Medical History (1) Diabetes Status: Chronic (2) Prostate cancer Status: Chronic (3) Hypertension Status: Chronic (4) History of right hip replacement Status: Chronic Past Medical History - Allergies and Home Meds Allergies/Adverse Reactions: Allergies No Known Allergies Allergy (Verified 04/26/19 11:56) Primary Care Physician: Danny Ramos MD [Primary Care Provider] - Prior records reviewed: Yes Lives: Spouse/ Significant Other Smoking Status: Former smoker Review of Systems General: Denies: Chills, Fever Eyes: Denies: Visual changes - bilaterally ENT: Denies: Bilateral ear pain Cardiovascular: Reports: Chest pain Respiratory: Reports: Dyspnea, Cough, Sputum Gastrointestinal: Denies: Abdominal pain, Nausea, Vomiting, Diarrhea Genitourinary: Denies: Dysuria Musculoskeletal: Denies: Swelling, Extremity Pain Skin: Denies: Rash Neurological: Denies: Headache Allergy: Denies: Uticaria Physical Exam Vital Signs/Narrative: Vital Signs Temp Pulse Resp BP Pulse Ox 04/26/19 11:57 93 04/26/19 11:53 97.8 F 84 16 162/82 H 81 Inital Vital Signs reviewed: Yes General: Well nourished, Well developed Head: Normocephalic ENT: Moist mucous membranes Neck: Supple Cardiovascular: Regular rate, Regular rhythm Respiratory: - - Diminished lung sounds at the right base Abdomen: Soft, Nontender Extremities: Nontender. Negative for: Edema, Calf Tenderness Skin: Normal color Neurological: Alert, Oriented x3 Psychological: Normal affect Diagnostic/Tx/Re-eval Impressions Chest X-Ray 04/26/19 12:04 IMPRESSION: Degenerative changes, as described above. No demonstrated acute cardiopulmonary process. Electronically Signed: Jayson Cunningham MD at 12:20 EST , Service support , Chest CTA 04/26/19 13:10 IMPRESSION: No demonstrated PE, or thoracic aortic aneurysm or dissection Chronic interstitial changes in both lung mtz with superimposed groundglass opacifications, dependent atelectasis and small pleural effusions Chronic bronchitis Calcified coronary vessels Degenerative bony changes Hiatal hernia Electronically Signed: Jayson Cunningham MD at 13:57 EST , Service support , 04/26/19 12:04 Chest 1 View (Portable) [RAD] Stat 04/26/19 13:10 CTA Chest W/WO Contrast [CT] Stat Laboratory Results 04/26/19 04/26/19 04/26/19 12:20 12:20 12:20 WBC 14.2 H RBC 5.19 Hgb 15.2 Hct 46.6 MCV 89.8 MCH 29.3 MCHC 32.6 RDW Std Deviation 38.7 RDW Coeff of Berry 11.9 Plt Count 132 L MPV 11.4 Immature Gran % (Auto) 0.500 Neut % (Auto) 91.6 H Lymph % (Auto) 3.4 L [place] % (Auto) 4.2 Eos % (Auto) 0.2 Baso % (Auto) 0.1 Absolute Neuts (auto) 13.0 H Absolute Lymphs (auto) 0.48 L Nucleated RBC % 0 Platelet Estimate SLT DEC RBC Morphology NORM C+C Sodium 140 Potassium 3.8 Chloride 106 Carbon Dioxide 27.0 Anion Gap 7 BUN 20 H Creatinine 1.41 H Estim Creat Clear Calc 49.70 Est GFR (MDRD) Af Amer 63 Est GFR (MDRD) Non-Af 52 L BUN/Creatinine Ratio 14.2 Glucose 204 H Lactic Acid 3.5 H* Calcium 8.7 Troponin I < 0.015 B-Natriuretic Peptide 04/26/19 12:20 WBC RBC Hgb Hct MCV MCH MCHC RDW Std Deviation RDW Coeff of Berry Plt Count MPV Immature Gran % (Auto) Neut % (Auto) Lymph % (Auto) [place] % (Auto) Eos % (Auto) Baso % (Auto) Absolute Neuts (auto) Absolute Lymphs (auto) Nucleated RBC % Platelet Estimate RBC Morphology Sodium Potassium Chloride Carbon Dioxide Anion Gap BUN Creatinine Estim Creat Clear Calc Est GFR (MDRD) Af Amer Est GFR (MDRD) Non-Af BUN/Creatinine Ratio Glucose Lactic Acid Calcium Troponin I B-Natriuretic Peptide 69.8 - EKG Initial EKG Interpretation: Sinus Rhythm - Sinus at 80 with right bundle branch block. La teral ST depression noted. This is changed when compared to prior study from March 26, 2018. Follow-up EKG Interpretation: Sinus Rhythm - Sinus at 90 with right bundle branch block. ST depression is improved. - Medical Decision Making Patient been given aspirin and 1 nitro with EMS. Pain was improved at the time of my initial evaluation. Patient was reportedly hypoxic at 81% on room air on arrival to the emergency room. On 4 L nasal cannula his O2 sats are in the mid to high 90s. Cardiac work-up at this point reveals no evidence of cardiac damage. He does have some EKG changes noted. There is no evidence of pulmonary embolism or infiltrate on CAT scan. Patient be admitted for further work-up and evaluation. ED Disposition - Plan for ED Patient: Disposition: Acute Care Hospital [facility] Diagnosis: Hypoxia, Chest pain Referrals: Danny Ramos MD [Primary Care Provider] -
--- NOTE | 2019-04-26 12:04 | RAD_ITS ---
STUDY: X-RAY CHEST REASON FOR EXAM: Male, 74 years old. Chest pain and shortness of breath TECHNIQUE: 2 AP portable views COMPARISON: 2015 FINDINGS: EKG leads overlie the chest There are interstitial fibrotic changes of the lungs. There is no demonstrated pleural abnormality. Normal size heart. Normal mediastinum and pia. Normal visualized pulmonary arteries. Normal visualized aortic arch and descending thoracic aorta. There are diffuse degenerative changes of the visualized thoracic spine. Normal visualized ribs, clavicles, and shoulders. There is no demonstrated abnormality of the visualized soft tissue structures of the upper abdomen. RAD/Chest 1 View (Portable) IMPRESSION: Degenerative changes, as described above. No demonstrated acute cardiopulmonary process. Electronically Signed: Jayson Cunningham MD at 12:20 EST , Service support ,
[2019-04-26 12:52] LABS: Absolute Lymphocyte Count 0.48 X10^3/uL (0.83-4.51); Basophil# 0.02 X10^3/uL; Basophil% 0.1 % (0-1); Eosinophil# 0.03 X10^3/uL; Eosinophils% 0.2 % (0-5); Hematocrit 46.6 % (40-54); Hemoglobin 15.2 g/dL (13.0-16.5); Lymphocyte # 0.48 X10^3/ul (4.0); Lymphocyte % 3.4 % (19-41); Mean Corp Hgb Conc 32.6 g/dL (32-36); Mean Corpuscular Hgb 29.3 pg (27.0-32.0); Mean Corpuscular Volume 89.8 fL (80-94); Mean Platelet Vol. 11.4 fl (6.2-12.0); Monocyte% 4.2 % (0-10); NRBC Flagged by Analyzer 0 % (0-5); Neutrophil # 13.04 X10^3/uL (2.7-7.7); Neutrophil % 91.6 % (47-70); POSITIVE DIFFERENTIAL YES; Platelet Count 132 K/mm3 (150-450); RBC Distribution Width CV 11.9 % (11.6-14.6); RBC Distribution Width SD 38.7 fl (35.1-43.9); Red Blood Count 5.19 M/mm3 (4.6-6.2); White Blood Count 14.2 K/mm3 (4.4-11.0)
[2019-04-26 12:57] LABS: Differential Indicated SCAN CRITERIA MET
[2019-04-26 13:07] LABS: Anion Gap 7 (5-15); BUN 20 mg/dL (7-18); BUN/Creat Ratio 14.2 RATIO (10-20); Calcium,Total 8.7 mg/dL (8.5-10.1); Chloride 106 mmol/L (98-107); Creatinine, Serum 1.41 mg/dL (0.70-1.30); EST Glomerular Filtration Rate 52 mL/min (>60); Est Glom Filt Rate - Afr Amer 63 mL/min (>60); Glucose 204 mg/dL (74-106); Potassium 3.8 mmol/L (3.5-5.1); Sodium Level 140 mmol/L (136-145)
--- NOTE | 2019-04-26 13:10 | CT_ITS ---
STUDY: CTA CHEST REASON FOR EXAM: Male, 74 years old. HYPOXIA, CHEST PAIN RADIATION DOSAGE (If Supplied By Facility): CTDIvol = ( 11.21 ) mGy, DLP = ( 522.32 ) mGycm TECHNIQUE: The examination was performed with the intravenous administration of IV 100mL Isovue-370. Post-processing of the angiographic images was performed, with multiplanar reformation and 3D reconstruction. Individualized dose optimization techniques were used for this CT. COMPARISON: None. FINDINGS: Normal enhancement of the main pulmonary artery and right and left pulmonary arteries. Normal enhancement of the bilateral peripheral pulmonary arteries. There is no demonstrated pulmonary embolism. Normal thoracic aorta and visualized great vessels. There is no demonstrated aortic dissection. Normal heart and pericardium. There are calcifications of the coronary arteries. There are visualized mediastinal lymph nodes, which are within normal size limits, and with normal morphology. Normal hilar regions. There is peribronchial thickening. The lungs are well expanded. Chronic interstitial changes in both lung mtz with superimposed groundglass opacifications suggesting active alveolitis. There is dependent atelectasis and small pleural effusions. Normal pleura. Normal chest wall structures. There are degenerative changes of thoracic spine. There is a small hiatal hernia. CT/CTA Chest W/WO Contrast IMPRESSION: No demonstrated PE, or thoracic aortic aneurysm or dissection Chronic interstitial changes in both lung mtz with superimposed groundglass opacifications, dependent atelectasis and small pleural effusions Chronic bronchitis Calcified coronary vessels Degenerative bony changes Hiatal hernia Electronically Signed: Jayson Cunningham MD at 13:57 EST , Service support ,
[2019-04-26 13:11] LABS: Platelet Estimate SLT DEC (ADEQ)
[2019-04-26 13:12] LABS: Red Cell Morphology NORM C+C NORMAL (NORM C&C)
[2019-04-26 13:21] LABS: Lactic Acid 3.5 mmol/L (0.4-1.9)
[2019-04-26 13:23] LABS: BNP,B-Type NATRIURETIC PEPTIDE 69.8 pg/mL (0-100)
[2019-04-26] MEDS: 0.9% Normal Saline 1,000 ML 999 ML IV ×2 (14:49→15:49)
[2019-04-26 16:47] LABS: Reflex Lactate? Y
--- NOTE | 2019-04-26 17:08 | PCM.HP.STD ---
<Román Quezada - Last Filed: 04/26/19 17:08> Problem List (1) Chest pain Status: Acute (2) Hypoxia Status: Acute (3) Sinusitis Status: Acute (4) Diabetes Status: Chronic Qualifiers: Diabetes mellitus type: type 2 (5) Prostate cancer Status: Chronic (6) Hypertension Status: Chronic History of Present Illness Date of Admission: 04/26/19 Chief Complaint: chest pain The patient is a 74 year old M with pmhx prostate cancer, HTN, HLD, DMt2, former smoker, who presented to the ER with chest pain. This was sudden onset about an hour prior to arrival and occurred at rest while watching TV. He described it as a sharp substernal pain that radiated into his left arm and had associated lightheadedness, SOB, and nausea. It was constant and relieved by nitro. He noted it felt similar to indigestion but that it was much worse. His father had an [place], and his mother a stroke. He denies hx of heart disease. He believes he had a stress test about 3 years ago that was negative. He did smoke about 35 years but quit in 1997. In the ER at presentation he was hypoxic on room air and had lactic acidosis. Currently he has no SOB or CP. He recently completed amoxicillin and prednisone treatment for sinusitis, however he feels that he is still significantly congested. No fever/chill. [] Past Medical History Past Medical History (Chronic Problems): Chronic Problems (Last Updated 07/14/17 @ 10:33 by Chantelle Butcher) Diabetes (Chronic) Prostate cancer (Chronic) Hypertension (Chronic) History of right hip replacement (Chronic) History of chest pain (Chronic) Medical History: Medical History (Last Updated 07/14/17 @ 10:33 by Chantelle Butcher) Arthritis M19.90 Cancer C80.1 Diabetes E11.9 History of prostate cancer Z85.46 hx of disc injections Hypertension I10 Allergies No Known Allergies Allergy (Verified 04/26/19 11:56) Home Medications: Ambulatory Orders Medication Instructions Recorded Niacin [Niacin ER] 1,000 mg PO DAILY 07/25/14 metformin 500 mg tablet,extended 500 mg PO DAILY 90 Days #90 07/14/17 release 24 hr Atorvastatin Calcium [Lipitor] 40 mg PO QHS 04/26/19 Fexofenadine/Pseudoephedrine 1 tab PO DAILY 04/26/19 [Zena-D 24 Hour Tablet] Folic Acid 0.8 mg PO DAILY 04/26/19 Glucosa Escobar 2Kcl/Chondroitin Escobar 2 tab PO DAILY 04/26/19 [Glucosamine-Chondroitin Caplet] Lisinopril 20 mg PO DAILY 04/26/19 Oxycodone HCl 1 - 2 tab PO Q4H PRN PRN 04/26/19 cycloBENZAPRine HCl [Flexeril] 10 mg PO TID PRN PRN 04/26/19 Lives: Spouse/ Significant Other Smoking Status: Former smoker Tobacco Use: Cigarettes Alcohol: None Drugs: None - *Family History Maternal History Items: Stroke Paternal History Items: Heart Disease Review of Systems Constitutional: Denies: Chills, Fever, Weakness, Weight Change, Fatigue HEENT: Reports: Sinus Congestion. Denies: Head Aches, Sinus Drainage Cardiovascular: Reports: Chest Pain, Light Headedness - with CP. Denies: Edema, Heaviness, Palpitations, Syncope Respiratory: Reports: Shortness of Breath - with CP. Denies: Cough, Shortness of breath at rest, Sputum production Gastrointestinal: Reports: Nausea - with CP. Denies: Abdominal Pain, Vomiting Genitourinary: Denies: Dysuria Musculoskeletal: Denies: Joint Pain, Joint Tenderness Skin: Denies: Lesions, Rash, Wounds Neurological: Denies: Numbness, Tingling, Focal weakness Psychiatric: Denies: Anxiety, Depression, Homicidal Ideations, Suicidal Ideations Hematologic/ Lymphatic: Denies: Easy Bruising, Easy Bleeding VTE Information - Inpt Only VTE Present on Admission: No VTE Mechan Device Prophylaxis: None VTE Pharm Prophylaxis ordered?: Yes Patient Problems: Active and Suspected Problems (Last Updated 07/14/17 @ 10:33 by Chantelle Butcher) Hypoxia (Acute) Chest pain (Acute) Sinusitis (Acute) - Physical Exam Vitals/I&O's: Vital Signs Temp Pulse Resp BP Pulse Ox 97.8 F 91 20 H 147/77 H 96 04/26/19 11:53 04/26/19 15:22 04/26/19 15:22 04/26/19 15:22 04/26/19 15:22 Oxygen Flow Rate (L/min) 3 Oxygen Delivery Method Nasal Cannula Weight: 230 lb 9.656 oz Body Mass Index (BMI) 32.1 Finger Stick Blood Glucose 149 Intake and Output for Last 24 Hours 04/24/19 04/25/19 04/26/19 23:59 23:59 23:59 Intake Total 999 / 999 Balance 999 / 999 General: Alert, Oriented x3, Cooperative HEENT: Atraumatic, PERRLA, EOMI, Normocephalic Neck: Supple, No JVD, Negative Carotid Bruits Lungs: Clear to auscultation, Normal air movement Cardiovascular: Regular rate, No murmurs Abdomen: Bowel Sounds Present, Soft, Non Tender Extremities: No edema, Capillary Refill Less than 3 Seconds Skin: No rashes, No breakdown Musculoskeletal: No Tenderness to Palpation of Joints or Extremities Neurological: Cranial nerves II-XII grossly intact Psych/Mental Status: Normal Affect, Appropriate, Alert and oriented to time, place, person, mood and affect Laboratory Results 04/26/19 12:20: WBC 14.2 H, RBC 5.19, Hgb 15.2, Hct 46.6, MCV 89.8, MCH 29.3, MCHC 32.6, RDW Std Deviation 38.7, RDW Coeff of Berry 11.9, Plt Count 132 L, MPV 11.4, Immature Gran % (Auto) 0.500, Neut % (Auto) 91.6 H, Lymph % (Auto) 3.4 L, [place] % (Auto) 4.2, Eos % (Auto) 0.2, Baso % (Auto) 0.1, Absolute Neuts (auto) 13.0 H, Absolute Lymphs (auto) 0.48 L, Nucleated RBC % 0, Platelet Estimate SLT DEC, RBC Morphology NORM C+C 04/26/19 12:20: Sodium 140, Potassium 3.8, Chloride 106, Carbon Dioxide 27.0, Anion Gap 7, BUN 20 H, Creatinine 1.41 H, Estim Creat Clear Calc 49.70, Est GFR (MDRD) Af Amer 63, Est GFR (MDRD) Non-Af 52 L, BUN/Creatinine Ratio 14.2, Glucose 204 H, Calcium 8.7, Troponin I < 0.015 04/26/19 12:20: Lactic Acid 3.5 H* 04/26/19 12:20: B-Natriuretic Peptide 69.8 04/26/19 16:55: Lactic Acid Pending Current Medications Sodium Chloride () 10 - 40 ml IV UD PRN PRN Reason: SALINE FLUSH Assessment/Plan All Active Problems (Last Updated 07/14/17 @ 10:33 by Chantelle Butcher) Hypoxia (Acute) Chest pain (Acute) Sinusitis (Acute) URI, acute (Acute) 1. Chest pain - EKG shows RBBB which says is not new, trop is negative. CTA negative for acute process. Risk factors include his symptomology, relief with nitro, hx HTN, HLD, DMt2, heavy smoking, and parents with hx of cardiovascular disease. Cycle enzymes, check FLP, repeat EKG in AM, maintain on tele, stress test in AM. Continue statin, start aspirin. 2. Lactic acidosis - I suspect this is 2/2 to his hypoxia. The hypoxia is of unclear etiology. He likely has underlying lung disease based off his smoking hx and CTA findings. BNP was negative. 3. HTN - poorly controlled, will adjust if needed 4. Recent sinusitis - still with symptoms after completing amoxicillin. Unasyn started with plan to transition to augmentin. No fever. leukocytosis possibly due to recent prednisone use. I do not believe he has sepsis as he has mild sinus symptoms and appears nontoxic. Blood cultures are pending. 5. DMt2 - hold metformin. SSI. 6. HLD - on statin DVT ppx: lovenox This patient was seen by Román Quezada PA-C under the supervision of Dr. Gunter. <Fab Gunter F - Last Filed: 04/26/19 19:54> History of Present Illness The patient is a 74 year old M [] Past Medical History Medical History: Medical History (Last Updated 07/14/17 @ 10:33 by Chantelle Butcher) Arthritis M19.90 Cancer C80.1 Diabetes E11.9 History of prostate cancer Z85.46 hx of disc injections Hypertension I10 Allergies No Known Allergies Allergy (Verified 04/26/19 11:56) - Physical Exam Vitals/I&O's: Vital Signs Temp Pulse Resp BP Pulse Ox 97.8 F 82 18 157/88 H 95 04/26/19 17:18 04/26/19 19:00 04/26/19 17:18 04/26/19 17:18 04/26/19 17:18 Oxygen Flow Rate (L/min) 3 Oxygen Delivery Method Nasal Cannula Weight: 229 lb 8.019 oz Body Mass Index (BMI) 32.0 Finger Stick Blood Glucose 149 Intake and Output for Last 24 Hours 04/24/19 04/25/19 04/26/19 23:59 23:59 23:59 Intake Total 2111 Balance 2111 Laboratory Results 04/26/19 12:20: WBC 14.2 H, RBC 5.19, Hgb 15.2, Hct 46.6, MCV 89.8, MCH 29.3, MCHC 32.6, RDW Std Deviation 38.7, RDW Coeff of Berry 11.9, Plt Count 132 L, MPV 11.4, Immature Gran % (Auto) 0.500, Neut % (Auto) 91.6 H, Lymph % (Auto) 3.4 L, [place] % (Auto) 4.2, Eos % (Auto) 0.2, Baso % (Auto) 0.1, Absolute Neuts (auto) 13.0 H, Absolute Lymphs (auto) 0.48 L, Nucleated RBC % 0, Platelet Estimate SLT DEC, RBC Morphology NORM C+C 04/26/19 12:20: Sodium 140, Potassium 3.8, Chloride 106, Carbon Dioxide 27.0, Anion Gap 7, BUN 20 H, Creatinine 1.41 H, Estim Creat Clear Calc 49.70, Est GFR (MDRD) Af Amer 63, Est GFR (MDRD) Non-Af 52 L, BUN/Creatinine Ratio 14.2, Glucose 204 H, Calcium 8.7, Troponin I < 0.015 04/26/19 12:20: Lactic Acid 3.5 H* 04/26/19 12:20: B-Natriuretic Peptide 69.8 04/26/19 16:55: Lactic Acid 2.0 04/26/19 16:55: Troponin I 9.380 H* 04/26/19 17:46: POC Glucose 142 H 04/26/19 18:36: PT 13.8, INR 1.1, APTT 27.9 Current Medications Aspirin (Ecotrin) 81 mg PO DAILY@0800 LEXIE Glucagon () 1 mg IM .X1 PRN PRN Reason: Hypoglycemia Heparin Sodium (Porcine) (Heparin Na) 0 unit IV UD PRN; Protocol PRN Reason: dosage adjustment nomogram Ampicillin Sodium/Sulbactam (Sodium 3 gm/ Sodium Chloride) 112 mls @ 150 mls/hr IV Q8 LEXIE Dextrose (Dextrose 10%-Water) 250 mls @ 999 mls/hr IV .Q16M PRN; Protocol PRN Reason: HYPOGLYCEMIA Heparin Sodium/Dextrose () 25,000 units in 250 mls @ 10 mls/hr IV .Q25H LEXIE; Protocol Last Admin: 04/26/19 18:38 Dose: 1,000 units/hr, 10 mls/hr Documented by: Insulin Human Lispro (Humalog Kwikpen (Bkc)) 0 unit SC ACHS LEXIE; Protocol Last Admin: 04/26/19 17:49 Dose: Not Given Documented by: Melatonin (Melatonin) 3 mg PO QHS PRN PRN PRN Reason: INSOMNIA Nitroglycerin (Nitrostat) 0.4 mg SUBLINGUAL Q5M PRN PRN Reason: CARDIAC/CHEST PAIN Ondansetron HCl (Zofran) 4 mg IV Q8H PRN PRN PRN Reason: NAUSEA/VOMITING Sodium Chloride () 10 - 40 ml IV UD PRN PRN Reason: SALINE FLUSH Code Visit Addendum: Dr. Gunter I personally examined the patient and reviewed the chart. I agree with the above. 74-year-old male with a history of diabetes and extensive family history of heart disease presents with an acute mid chest pain that went to his back and caused him to have significant shortness of breath. In the ER he was hypoxic to 81 requiring a few liters of oxygen via nasal cannula to maintain sats above 90. He denies having a previous heart attack though he has had a stress test in the past which was normal. His pain did occur at rest and went to his left arm and was relieved by nitro. His initial troponin was negative however his second troponin garcia to 9.38. He was given a loading dose of Plavix on top of the aspirin he received in the ambulance and was started on a heparin drip. Cardiology was consulted and he will likely need a cardiac cath in the near future. CTA chest was unremarkable for a PE or pneumonia. Also he was recently treated with amoxicillin for a few days for a sinus infection however he is continued to cough and continues to have a white count therefore he was started on Unasyn here to broaden coverage. OBSV E&M: [id number] Initial observation care L3
--- NOTE | 2019-04-26 17:33 | EKG12_ITS ---
Test Reason : ADMIT CP Blood Pressure : / mmHG Vent. Rate : 070 BPM Atrial Rate : 070 BPM P-R Int : 166 ms QRS Dur : 126 ms QT Int : 418 ms P-R-T Axes : 033 041 060 degrees QTc Int : 451 ms Normal sinus rhythm Right bundle branch block Abnormal ECG When compared with ECG of 26-APR-2019 13:45, MANUAL COMPARISON REQUIRED, DATA IS UNCONFIRMED Confirmed by DHRUV CRUZ, IAN ([id number]), international editorial producer FRANCIS KOO ([id number]) on 05/01/2019 1:01:19 PM Referred By: DAGOBERTO Confirmed By:IAN BARTLETT MD
[2019-04-26 17:50] LABS: Bedside Glucose 142 mg/dL (70-110)
--- NOTE | 2019-04-26 18:16 | EKG12_ITS ---
Test Reason : REPEAT Blood Pressure : / mmHG Vent. Rate : 090 BPM Atrial Rate : 090 BPM P-R Int : 194 ms QRS Dur : 132 ms QT Int : 396 ms P-R-T Axes : 033 -03 042 degrees QTc Int : 484 ms Normal sinus rhythm Right bundle branch block Abnormal ECG Confirmed by LAMIN CRUZ, VERÓNICA ([id number]), non linear editor FRANCIS KOO ([id number]) on 04/29/2019 11:17:29 AM Referred By: TOLU Confirmed By:CARLTON KIMBLE MD
[2019-04-26] MEDS: Clopidogrel Bisulfate 300 MG Tablet 600 MG PO (18:31)
[2019-04-26] MEDS: HEPARIN/D5w 25,000 UNITS 25,000 UNITS/250 ML IV.SOLN. 10 UNITS IV (18:38)
[2019-04-26 19:11] LABS: International Normalized Ratio 1.1; Partial Thromboplast Time 27.9 Seconds (24.1-36.2); Prothrombin Time (Protime)PT. 13.8 SECONDS (11.7-14.9)
--- NOTE | 2019-04-26 20:26 | PCM.CONS.C ---
Reason for Consult Date of Consultation: 04/26/19 History of Present Illness: The patient is a 74 year old M with pmhx prostate cancer, HTN, HLD, DMt2, former smoker, who presented to the ER with chest pain. This was sudden onset about an hour prior to arrival and occurred at rest while watching TV. He described it as a sharp substernal pain that radiated into his left arm and had associated lightheadedness, SOB, and nausea. It was constant and relieved by nitro. He noted it felt similar to indigestion but that it was much worse. His father had an [place], and his mother a stroke. He denies hx of heart disease. He believes he had a stress test about 3 years ago that was negative. He did smoke about 35 years but quit in 1997. In the ER at presentation he was hypoxic on room air and had lactic acidosis. Currently he has no SOB or CP. He recently completed amoxicillin and prednisone treatment for sinusitis, however he feels that he is still significantly congested. No fever/chill. Review of systems: All systems reviewed. All else is negative except that in the HPI. Past Medical History Allergies/Adverse Reactions: Allergies No Known Allergies Allergy (Verified 04/26/19 11:56) Home Medications: Ambulatory Orders Medication Instructions Recorded Niacin [Niacin ER] 1,000 mg PO DAILY 07/25/14 metformin 500 mg tablet,extended 500 mg PO DAILY 90 Days #90 07/14/17 release 24 hr Atorvastatin Calcium [Lipitor] 40 mg PO QHS 04/26/19 Fexofenadine/Pseudoephedrine 1 tab PO DAILY 04/26/19 [Zena-D 24 Hour Tablet] Folic Acid 0.8 mg PO DAILY 04/26/19 Glucosa Escobar 2Kcl/Chondroitin Escobar 2 tab PO DAILY 04/26/19 [Glucosamine-Chondroitin Caplet] Lisinopril 20 mg PO DAILY 04/26/19 Oxycodone HCl 1 - 2 tab PO Q4H PRN PRN 04/26/19 cycloBENZAPRine HCl [Flexeril] 10 mg PO TID PRN PRN 04/26/19 Past Medical History (Chronic Problems): Chronic Problems (Last Updated 07/14/17 @ 10:33 by Chantelle Butcher) Diabetes (Chronic) Prostate cancer (Chronic) Hypertension (Chronic) History of right hip replacement (Chronic) History of chest pain (Chronic) - *Family History Maternal History Items: Stroke Paternal History Items: Heart Disease Lives: Spouse/ Significant Other Smoking Status: Former smoker Tobacco Use: Cigarettes Alcohol: None Drugs: None Objective: Vital Signs Temp Pulse Resp BP Pulse Ox 97.8 F 82 18 157/88 H 95 04/26/19 17:18 04/26/19 19:00 04/26/19 17:18 04/26/19 17:18 04/26/19 17:18 Oxygen Flow Rate (L/min) 3 Oxygen Delivery Method Nasal Cannula Weight: 229 lb 8.019 oz Body Mass Index (BMI) 32.0 Finger Stick Blood Glucose 149 Intake and Output for Last 24 Hours 04/24/19 04/25/19 04/26/19 23:59 23:59 23:59 Intake Total 2111 Balance 2111 General: Healthy Appearing, Awake, Oriented x 3 HEENT: Atraumatic Oral: Moist Mucosa Neck: Supple Lungs: Clear to auscultation Cardiovascular: Regular Rhythm Abdomen: Soft Extremities: No edema Skin: No Rashes Psych/Mental Status: Appropriate 04/26/19 12:20: WBC 14.2 H, RBC 5.19, Hgb 15.2, Hct 46.6, MCV 89.8, MCH 29.3, MCHC 32.6, Plt Count 132 L, MPV 11.4, Immature Gran % (Auto) 0.500, Neut % (Auto) 91.6 H, Lymph % (Auto) 3.4 L, [place] % (Auto) 4.2, Eos % (Auto) 0.2, Baso % (Auto) 0.1, Absolute Neuts (auto) 13.0 H, Nucleated RBC % 0 04/26/19 12:20: Sodium 140, Potassium 3.8, Chloride 106, Carbon Dioxide 27.0, Anion Gap 7, BUN 20 H, Creatinine 1.41 H, Est GFR (MDRD) Af Amer 63, Est GFR (MDRD) Non-Af 52 L, BUN/Creatinine Ratio 14.2, Glucose 204 H, Calcium 8.7, Troponin I < 0.015 04/26/19 12:20: Lactic Acid 3.5 H* 04/26/19 12:20: B-Natriuretic Peptide 69.8 02/07/20 16:55: Lactic Acid 2.0 04/26/19 16:55: Troponin I 9.380 H* 04/26/19 18:36: PT 13.8, INR 1.1, APTT 27.9 Rhythm: EKG: ECHO: Stress Test: Cardiac Cath: PCI: CT Surgery: Holter monitor: EPS: PPM: CXR: Chest CT Scan: Assessment/Plan 1. Chest pain: Patient's troponin is elevated. Patient is having a non-STEMI. We will proceed with coronary angiography. Rest of the management will be based on angiographic findings.
--- NOTE | 2019-04-26 22:10 | CL.D_ITS ---
Patient Name: RACHEAL VINCENT Study Date: 04/26/2019 Performing: Sean Sullivan MD Ht: 71 inches 180 cm : 1945 Wt: 229.6 lbs 104 kg Age: 74 Gender: male BSA: 2.23 PROCEDURE(S) PERFORMED CL04-LGB/COR CLINICAL PROFILE AND INDICATIONS Indications: ACS <= 24 hrs Heart Failure: None Stress/Imaging Stress/Image Study Performed: No CAD Presentations: Non-STEMI. Symptom onset Date/Time: 04/26/19 Time Not Available CONCLUSIONS CAD as described RECOMMENDATIONS Surgery consult for coronary revascularization DESCRIPTION OF PROCEDURE The patient arrived to the procedure lab. The risks and benefits of the procedure as well as a full d escription of our services here and current unavailability of surgical backup were fully explained to the patient and/or their significant other prior to the catheterization. The Timeout was completed, verifying the correct patient and procedure. The patient's procedural site was prepped and draped in the usual fashion. Local anesthetic was given subcutaneously to right radial region with Lidocaine 2% . Using a modified Seldinger technique, arterial access was obtained via the right radial artery, a 6 Fr sheath was inserted. Left Coronary Artery selective angiography was performed in multiple views u sing a 5 Fr. JL3.5 catheter. LV to AO pullback pressures were then recorded. Right Coronary Artery se lective angiography was then performed in multiple views using a 5 Fr. JR 4 catheter.The arterial she ath was pulled and a TR Band was applied for hemostasis CORONARY ANGIOGRAPHY DOMINANCE: Right Dominant LEFT HEART ASSESSMENT Left Ventricular Ejection Fraction: Not assessed LEFT MAIN: 50 % eccentric Stenosis in the distal portion LEFT ANTERIOR DESCENDING ARTERY: PROX LAD: 95 % Stenosis. 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 immediately distal to this stenosis and proxima l to the mid LAD stenosis MID LAD: 80 % Stenosis DIAGONAL 1: Ostial - 80 % Stenosis CIRCUMFLEX ARTERY: Mild luminal irregularities RIGHT CORONARY ARTERY: MID RCA: 70 % Stenosis VALVE FINDINGS: No Aortic Valve Stenosis COMPLICATIONS No Complications PROCEDURE MEDICATIONS Versed 2 mg IV Oxygen: 3 L/min via nasal cannula Heparin given IA 04/26/2019 20:58:15 Verapamil 2.5mg, Ntg 100mcgs, 3000 units of Heparin given IA 04/26/2019 20:58:15 SUMMARY OF HEMODYNAMIC DATA Time AIR REST ECG 20:46:12 AO 106/66 (84) SA 21:01:13 LV 143/2, 25 21:12:15 LV 144/2, 27 21:12:22 LVp 146/4, 25 21:12:36 AOp 145/73 (103) 21:12:41 Signed By Sean Sullivan MD On 04/26/2019 10:09:32 PM Sean Sullivan MD
--- NOTE | 2019-04-26 22:13 | PCM.PN.BLA ---
Progress Note Notified that patient has been accepted in [facility]. And transfer process will start 04-27-2019. Reason for transfer is surgical coronary revascularization. Accepting doctor is Dr. Yobani Rosario. STROKE Vital Signs/Narrative: Vital Signs Pulse Resp BP Pulse Ox 04/26/19 21:55 95 20 H 142/79 H 93 04/26/19 19:00 82
[2019-04-26] MEDS: 0.9% Saline Lock 10 ML Syringe IV (22:27)
[2019-04-26 22:40] LABS: Bedside Glucose 122 mg/dL (70-110)
[2019-04-26] MEDS: 0.9% Normal Saline 1,000 ML 60 ML IV (23:23)
[2019-04-27] VITALS (36 sets, daily range): BP systolic 102–148; BP diastolic 64–127; PULSE 63–190; RESP 16–33; TEMP 36.5–37.1; O2SAT 88–97
[2019-04-27 02:32] LABS: Absolute Neutrophil Count 10.2 X10^3/uL (2.0-7.7); Basophil# 0.03 X10^3/uL; Basophil% 0.2 % (0-1); Eosinophil# 0.07 X10^3/uL; Eosinophils% 0.6 % (0-5); Hematocrit 41.3 % (40-54); Hemoglobin 13.6 g/dL (13.0-16.5); Lymphocyte % 7.3 % (19-41); Mean Corp Hgb Conc 32.9 g/dL (32-36); Mean Corpuscular Hgb 29.5 pg (27.0-32.0); Mean Corpuscular Volume 89.6 fL (80-94); Mean Platelet Vol. 11.1 fl (6.2-12.0); Monocyte# 0.92 X10^3/uL; Monocyte% 7.5 % (0-10); NRBC Flagged by Analyzer 0 % (0-5); Neutrophil # 10.24 X10^3/uL (2.7-7.7); Neutrophil % 83.7 % (47-70); Platelet Count 120 K/mm3 (150-450); RBC Distribution Width SD 38.9 fl (35.1-43.9); Red Blood Count 4.61 M/mm3 (4.6-6.2); White Blood Count 12.3 K/mm3 (4.4-11.0)
[2019-04-27 02:33] LABS: International Normalized Ratio 1.1; Prothrombin Time (Protime)PT. 14.1 SECONDS (11.7-14.9)
[2019-04-27 02:34] LABS: Partial Thromboplast Time 27.8 Seconds (24.1-36.2)
[2019-04-27] MEDS: 0.9% Saline Lock 10 ML Syringe IV (05:02)
[2019-04-27] MEDS: HEPARIN/D5w 25,000 UNITS 25,000 UNITS/250 ML IV.SOLN. 10 UNITS IV (05:12)
[2019-04-27 05:58] LABS: Anion Gap 7 (5-15); BUN 15 mg/dL (7-18); BUN/Creat Ratio 12.6 RATIO (10-20); Calcium,Total 8.2 mg/dL (8.5-10.1); Chloride 108 mmol/L (98-107); Cholesterol 131 mg/dL (200); Creatinine, Serum 1.19 mg/dL (0.70-1.30); EST Glomerular Filtration Rate 64 mL/min (>60); Est Glom Filt Rate - Afr Amer 77 mL/min (>60); Estimated Creatinine Clearance 58.88 ml/min; Glucose 99 mg/dL (74-106); High Density Lipoprotein 38 mg/dL; Potassium 3.8 mmol/L (3.5-5.1); Sodium Level 141 mmol/L (136-145); Triglycerides 147 mg/dL; Very Low Density Lipoprotein 29 mg/dL (5-40)
[2019-04-27 06:35] LABS: Bedside Glucose 99 mg/dL (70-110)
--- NOTE | 2019-04-27 08:06 | EKG12_ITS ---
Test Reason : HR Blood Pressure : / mmHG Vent. Rate : 111 BPM Atrial Rate : 097 BPM P-R Int : 000 ms QRS Dur : 132 ms QT Int : 330 ms P-R-T Axes : 000 048 100 degrees QTc Int : 448 ms Atrial fibrillation Right bundle branch block Abnormal ECG When compared with ECG of 27-APR-2019 08:14, MANUAL COMPARISON REQUIRED, DATA IS UNCONFIRMED Confirmed by DHRUV CRUZ, IAN ([id number]), electronic news gathering editor RAVEN HEADLEY ([id number]) on 04/30/2019 8:19:31 AM Referred By: JENNIFER Confirmed By:IAN BARTLETT MD
[2019-04-27] MEDS: Metoprolol Tartrate 5 MG/5 ML Vial IV (08:10)
--- NOTE | 2019-04-27 08:14 | EKG12_ITS ---
Test Reason : HR Blood Pressure : / mmHG Vent. Rate : 148 BPM Atrial Rate : 138 BPM P-R Int : 000 ms QRS Dur : 128 ms QT Int : 308 ms P-R-T Axes : 000 050 -20 degrees QTc Int : 483 ms Atrial fibrillation Right bundle branch block Abnormal ECG When compared with ECG of 26-APR-2019 17:33, MANUAL COMPARISON REQUIRED, DATA IS UNCONFIRMED Confirmed by DHRUV CRUZ, IAN ([id number]), tape editor FRANCIS KOO ([id number]) on 05/01/2019 1:00:14 PM Referred By: JENNIFER Confirmed By:IAN BARTLETT MD
--- NOTE | 2019-04-27 08:16 | NURSING ---
Patient HR elevated into 180-200s when up to RR. 5 mg IV lopressor given per Dr Sams verbal order. EKG confirm Afib.
[2019-04-27] MEDS: dilTIAZem 25 MG/5 ML Vial 20 MG IV BOLUS (08:18)
[2019-04-27] MEDS: Aspirin E.C. 81 MG Tablet PO (08:31)
[2019-04-27 08:38] LABS: Magnesium 1.9 mg/dL (1.6-2.6)
[2019-04-27] MEDS: Ipratropium 0.5 MG/2.5 ML SOLUTION INHALATION (11:09)
[2019-04-27 11:16] LABS: Bedside Glucose 152 mg/dL (70-110)
[2019-04-27 11:23] LABS: Partial Thromboplast Time 46.4 Seconds (24.1-36.2)
[2019-04-27] MEDS: Insulin Lispro 100 UNIT/ML INSULN.PEN SC (11:29)
[2019-04-27] MEDS: Amiodarone 360 MG in Dextrose 5% Viaflo Bag 192.8 ML 33.3 MG CONT INF (11:30)
--- NOTE | 2019-04-27 11:54 | CM.UR ---
Patient being transferred to [facility]. Checked his [place] [employer] preferred HMO(via website) and [facility] is in-network provider. ISSA Sweet alerted. Lisandro Oh RN, [facility].
--- NOTE | 2019-04-27 14:19 | PCM.DC.SUM ---
<Román Quezada - Last Filed: 04/27/19 14:19> Discharge Date and Diagnosis Date of Admission: 04/26/19 Date of Discharge: 04/27/19 - Primary Discharge Diagnosis Active and Suspected Problems (Last Updated 07/14/17 @ 10:33 by Chantelle Butcher) Non-STEMI Multivessel CAD Type 2 diabetes Hypertension Hyperlipidemia Former nicotine abuse - Secondary Discharge Diagnosis Chronic Problems (Last Updated 07/14/17 @ 10:33 by Chantelle Butcher) Diabetes (Chronic) Prostate cancer (Chronic) Hypertension (Chronic) History of right hip replacement (Chronic) History of chest pain (Chronic) Hospital Course and Treatment Imaging Results: Diagnostics: CORONARY ANGIOGRAPHY DOMINANCE: Right Dominant LEFT HEART ASSESSMENT Left Ventricular Ejection Fraction: Not assessed LEFT MAIN: 50 % eccentric Stenosis in the distal portion LEFT ANTERIOR DESCENDING ARTERY: PROX LAD: 95 % Stenosis. 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 No demonstrated acute cardiopulmonary process. CT/CTA Chest W/WO Contrast IMPRESSION: No demonstrated PE, or thoracic aortic aneurysm or dissection Chronic interstitial changes in both lung mtz with superimposed groundglass opacifications, dependent atelectasis and small pleural effusions Chronic bronchitis Calcified coronary vessels Degenerative bony changes Hiatal hernia Consults: Cardiology-[place] Operations: None Procedures: Cardiac catheterization Summary of Care Provided: Hospital course: The patient is a 74 year old M with past medical history of type 2 diabetes, hypertension, hyperlipidemia, 35-year smoking history, who presented to the emergency room with sudden onset chest pain. This was described as a sharp substernal pain radiating to the left arm with associated lightheadedness and nausea. In the emergency room it was relieved by nitro, he had a negative troponin, he had an EKG with nonspecific changes and an old right bundle branch block, and a CTA demonstrating chronic bronchitis, hiatal hernia, chronic interstitial changes with groundglass opacifications. He was also found to be hypoxic on room air and had no history of hypoxic respiratory failure. He also had lactic acidosis. He had a small elevation in white count. He had recently been treated with steroids and amoxicillin for sinusitis. He was still complaining of symptoms so he was started on Unasyn. He was admitted for his chest pain. His second troponin came back elevated at 9.38 and peaked at 16.9. Heparin was initiated. Cardiology was consulted and that night he was taken for left heart catheterization. He had multivessel disease as above most notably 95% stenosis of the proximal LAD. Recommendation was made to transfer to tertiary care. He was accepted at [facility]. While waiting for transfer he developed A. fib with RVR. He was initiated IV Lopressor x1, remained uncontrolled, was started on Cardizem drip, remained uncontrolled was started on amiodarone drip. His rate is still elevated in the 140s. He remains chest pain-free and his blood pressures controlled. He was transferred to [facility] in stable condition. This patient was seen by Román Quezada PA-C under the supervision of Doctor Latrell.] - Physical Exam Vitals/I&O's: Vital Signs Temp Pulse Resp BP Pulse Ox 98.7 F 148 H 30 H 140/127 H 95 04/27/19 14:00 04/27/19 14:00 04/27/19 14:00 04/27/19 14:00 04/27/19 14:00 Oxygen Flow Rate (L/min) 5 Oxygen Delivery Method Nasal Cannula Weight: 229 lb 8.019 oz Body Mass Index (BMI) 32.0 Finger Stick Blood Glucose 149 Intake and Output for Last 24 Hours 04/25/19 04/26/19 04/27/19 23:59 23:59 23:59 Intake Total 2683.67 / 2683.67 1030.52 / 1030.52 Output Total 875 / 875 675 / 675 Balance 1808.67 / 1808.67 355.52 / 355.52 General: Alert, Oriented x3, Cooperative HEENT: Atraumatic, PERRLA, EOMI, Normocephalic Neck: Supple, No JVD, Negative Carotid Bruits Lungs: Normal air movement, Wheezes Cardiovascular: Regular rate, Irregular Rate, Tachycardic Abdomen: Bowel Sounds Present, Soft, Non Tender Extremities: No edema, Capillary Refill Less than 3 Seconds Skin: No rashes, No breakdown Musculoskeletal: No Tenderness to Palpation of Joints or Extremities Neurological: Cranial nerves II-XII grossly intact Psych/Mental Status: Normal Affect, Appropriate, Alert and oriented to time, place, person, mood and affect Laboratory Results 04/26/19 16:55: Lactic Acid 2.0 04/26/19 16:55: Troponin I 9.380 H* 04/26/19 17:46: POC Glucose 142 H 04/26/19 18:36: PT 13.8, INR 1.1, APTT 27.9 04/26/19 22:15: POC Glucose 122 H 04/27/19 02:20: WBC 12.3 H, RBC 4.61, Hgb 13.6, Hct 41.3, MCV 89.6, MCH 29.5, MCHC 32.9, RDW Std Deviation 38.9, RDW Coeff of Berry 12.0, Plt Count 120 L, MPV 11.1, Immature Gran % (Auto) 0.700, Neut % (Auto) 83.7 H, Lymph % (Auto) 7.3 L, Thurston % (Auto) 7.5, Eos % (Auto) 0.6, Baso % (Auto) 0.2, Absolute Neuts (auto) 10.2 H, Absolute Lymphs (auto) 0.90, Nucleated RBC % 0 04/27/19 02:20: Troponin I 16.900 H* 04/27/19 02:20: PT 14.1, INR 1.1, APTT 27.8 04/27/19 05:28: Sodium 141, Potassium 3.8, Chloride 108 H, Carbon Dioxide 26.0, Anion Gap 7, BUN 15, Creatinine 1.19, Estim Creat Clear Calc 58.88, Est GFR (MDRD) Af Amer 77, Est GFR (MDRD) Non-Af 64, BUN/Creatinine Ratio 12.6, Glucose 99, Calcium 8.2 L, Triglycerides 147, Cholesterol 131, LDL Cholesterol 64, VLDL Cholesterol 29, HDL Cholesterol 38 L 04/27/19 05:28: Troponin I 11.500 H* 04/27/19 06:33: POC Glucose 99 04/27/19 08:20: Magnesium 1.9 04/27/19 11:00: APTT 46.4 H 04/27/19 11:12: POC Glucose 152 H Current Medications Aspirin (Ecotrin) 81 mg PO DAILY@0800 ELXIE Last Admin: 02/08/20 08:31 Dose: 81 mg Documented by: Glucagon () 1 mg IM .X1 PRN PRN Reason: Hypoglycemia Heparin Sodium (Porcine) (Heparin Na) 0 unit IV UD PRN; Protocol Ampicillin Sodium/Sulbactam (Sodium 3 gm/ Sodium Chloride) 112 mls @ 150 mls/hr IV Q8 LEXIE Last Admin: 04/27/19 13:50 Dose: 150 mls/hr Documented by: Dextrose (Dextrose 10%-Water) 250 mls @ 999 mls/hr IV .Q16M PRN; Protocol PRN Reason: HYPOGLYCEMIA Heparin Sodium/Dextrose () 25,000 units in 250 mls @ 10 mls/hr IV .Q25H [facility]; Protocol Last Titration: 04/27/19 11:44 Dose: 1,100 units/hr, 11 mls/hr Documented by: Diltiazem HCl 125 mg/ Dextrose 125 mls @ 5 mls/hr IV .Q25H [facility]; Protocol Last Titration: 04/27/19 14:00 Dose: 15 mg/hr, 15 mls/hr Documented by: Amiodarone HCl 360 mg/ (Dextrose) 200 mls @ 33.333 mls/hr CONT INF .Q6H [facility] Stop: 04/27/19 16:59 Last Infusion: 04/27/19 14:00 Dose: 1 mg/min, 33.3 mls/hr Documented by: Amiodarone HCl 360 mg/ (Dextrose) 200 mls @ 16.667 mls/hr CONT INF .Q12H [facility] Stop: 04/28/19 10:59 Insulin Human Lispro (Humalog Kwmalcolmpen (Bkc)) 0 unit SC ACHS [facility]; Protocol Last Admin: 04/27/19 11:29 Dose: 2 units Documented by: Melatonin (Melatonin) 3 mg PO QHS PRN PRN PRN Reason: INSOMNIA Nitroglycerin (Nitrostat) 0.4 mg SUBLINGUAL Q5M PRN PRN Reason: CARDIAC/CHEST PAIN Ondansetron HCl (Zofran) 4 mg IV Q8H PRN PRN PRN Reason: NAUSEA/VOMITING Sodium Chloride () 10 - 40 ml IV UD PRN PRN Reason: SALINE FLUSH Last Admin: 04/27/19 05:02 Dose: 10 ml Documented by: Discharge Diet: Low fat/ Low Cholesterol, 2000 mg Sodium Diet Discharge Activity: Return to Normal Activity Home Medications: Medications to take at Discharge Niacin [Niacin ER] 1,000 mg PO DAILY 07/25/14 metformin 500 mg tablet,extended release 24 hr 500 mg PO DAILY 90 Days #90 07/14/17 Atorvastatin Calcium [Lipitor] 40 mg PO QHS 04/26/19 Fexofenadine/Pseudoephedrine [Zena-D 24 Hour Tablet] 1 tab PO DAILY 04/26/19 Folic Acid 0.8 mg PO DAILY 04/26/19 Glucosa Escobar 2Kcl/Chondroitin Escobar [Glucosamine-Chondroitin Caplet] 2 tab PO DAILY 04/26/19 Lisinopril 20 mg PO DAILY 04/26/19 Oxycodone HCl 1 - 2 tab PO Q4H PRN PRN 04/26/19 cycloBENZAPRine HCl [Flexeril] 10 mg PO TID PRN PRN 04/26/19 Primary Care Physician: Danny Ramos MD [Primary Care Provider] - Please follow up with your Primary Care Physician in: as directed Disposition: Acute care Hospital Minutes spent on discharge:: 35 Patient Condition:: Guarded Medical Necessity - Tobacco Use Smoking Status: Former smoker Tobacco Use: Cigarettes Meaningful Use Info Meaningful Use Diagnoses (Choose all that apply): None applicable <Toño Sams - Last Filed: 04/28/19 10:34> Discharge Date and Diagnosis - Primary Discharge Diagnosis Active and Suspected Problems (Last Updated 07/14/17 @ 10:33 by Chantelle Butcher) Hypoxia (Acute) Chest pain (Acute) Sinusitis (Acute) - Secondary Discharge Diagnosis Chronic Problems (Last Updated 07/14/17 @ 10:33 by Chantelle Butcher) Diabetes (Chronic) Prostate cancer (Chronic) Hypertension (Chronic) History of right hip replacement (Chronic) History of chest pain (Chronic) Hospital Course and Treatment Summary of Care Provided: Hospitalist note: Discharge summary above reviewed and I concur with above treatment and transfer plan. Patient presented to the emergency room because of chest pain,, found to have acute non-ST elevation PA. His EKG revealed no evidence of acute ST elevation. His troponin was elevated and maximum was 16.9. Patient underwent cardiac catheterization that revealed distal left main 50% stenosis, proximal LAD 95% stenosis, mid LAD 80% stenosis, diagonal 80% stenosis, RCA 70% stenosis. This is consistent with multivessel disease. Decision was made to transfer patient to tertiary care center for evaluation for CABG. While waiting for transfer to [facility], patient developed A. fib with RVR. Heart rate went up to 180s. He received 1 dose of IV Lopressor but heart rate remained high in the 160s. Patient was given 1 dose of IV Cardizem bolus which brought the heart rate down but heart rate started to go up again. Patient was started on IV amiodarone drip as well as IV Cardizem drip. During that time, patient denied chest pain. His blood pressure was stable. Patient was hypoxic CTA chest done and showed no PE or dissection, revealed chronic changes. Patient transferred to [facility] for evaluation for CABG in a stable condition. - Physical Exam General: Alert, Oriented x3, Cooperative, No apparent distress. HEENT: Atraumatic, PERRLA, EOMI. Neck: Supple, No JVD, Negative Carotid Bruits, Trachea Midline, Thyroid Normal. Lungs: Diminished breath sounds bilateral, otherwise clear, No rhonchi, No wheeze, No rales. Cardiovascular: Irregular rate and rhythm, normal S1, Normal S2, tachycardia. Abdomen: Bowel Sounds Present, Soft, Non Tender, Non-Distended, No Hepato-splenomegaly. Extremities: No clubbing, No cyanosis, No edema Skin: No rashes, No breakdown Neurological: Cranial nerves are intact, neuro grossly intact This note was generated with [employer] dictation software. It may contain incorrect words, spelling, and punctuation that were not noted in checking the note before signing. - Physical Exam Vitals/I&O's: Vital Signs Temp Pulse Resp BP Pulse Ox 98.7 F 135 H 26 H 124/64 H 92 04/27/19 14:00 04/27/19 14:30 04/27/19 14:30 04/27/19 14:30 04/27/19 14:30 Oxygen Flow Rate (L/min) 5 Oxygen Delivery Method Nasal Cannula Weight: 229 lb 8.019 oz Body Mass Index (BMI) 32.0 Finger Stick Blood Glucose 149 Intake and Output for Last 24 Hours 04/25/19 04/26/19 04/27/19 23:59 23:59 23:59 Intake Total 2683.67 / 2683.67 1166.67 / 1166.67 Output Total 875 / 875 675 / 675 Balance 1808.67 / 1808.67 491.67 / 491.67 Laboratory Results 04/26/19 16:55: Lactic Acid 2.0 04/26/19 16:55: Troponin I 9.380 H* 04/26/19 17:46: POC Glucose 142 H 04/26/19 18:36: PT 13.8, INR 1.1, APTT 27.9 04/26/19 22:15: POC Glucose 122 H 04/27/19 02:20: WBC 12.3 H, RBC 4.61, Hgb 13.6, Hct 41.3, MCV 89.6, MCH 29.5, MCHC 32.9, RDW Std Deviation 38.9, RDW Coeff of Berry 12.0, Plt Count 120 L, MPV 11.1, Immature Gran % (Auto) 0.700, Neut % (Auto) 83.7 H, Lymph % (Auto) 7.3 L, Thurston % (Auto) 7.5, Eos % (Auto) 0.6, Baso % (Auto) 0.2, Absolute Neuts (auto) 10.2 H, Absolute Lymphs (auto) 0.90, Nucleated RBC % 0 04/27/19 02:20: Troponin I 16.900 H* 04/27/19 02:20: PT 14.1, INR 1.1, APTT 27.8 04/27/19 05:28: Sodium 141, Potassium 3.8, Chloride 108 H, Carbon Dioxide 26.0, Anion Gap 7, BUN 15, Creatinine 1.19, Estim Creat Clear Calc 58.88, Est GFR (MDRD) Af Amer 77, Est GFR (MDRD) Non-Af 64, BUN/Creatinine Ratio 12.6, Glucose 99, Calcium 8.2 L, Triglycerides 147, Cholesterol 131, LDL Cholesterol 64, VLDL Cholesterol 29, HDL Cholesterol 38 L 04/27/19 05:28: Troponin I 11.500 H* 04/27/19 06:33: POC Glucose 99 04/27/19 08:20: Magnesium 1.9 04/27/19 11:00: APTT 46.4 H 04/27/19 11:12: POC Glucose 152 H Current Medications Aspirin (Ecotrin) 81 mg PO DAILY@0800 [facility] Last Admin: 04/27/19 08:31 Dose: 81 mg Documented by: Glucagon () 1 mg IM .X1 PRN PRN Reason: Hypoglycemia Heparin Sodium (Porcine) (Heparin Na) 0 unit IV UD PRN; Protocol Ampicillin Sodium/Sulbactam (Sodium 3 gm/ Sodium Chloride) 112 mls @ 150 mls/hr IV Q8 LEXIE Last Infusion: 04/27/19 14:35 Dose: Infused Documented by: Dextrose (Dextrose 10%-Water) 250 mls @ 999 mls/hr IV .Q16M PRN; Protocol PRN Reason: HYPOGLYCEMIA Heparin Sodium/Dextrose () 25,000 units in 250 mls @ 10 mls/hr IV .Q25H [facility]; Protocol Last Titration: 04/27/19 11:44 Dose: 1,100 units/hr, 11 mls/hr Documented by: Diltiazem HCl 125 mg/ Dextrose 125 mls @ 5 mls/hr IV .Q25H [facility]; Protocol Last Titration: 04/27/19 14:30 Dose: 15 mg/hr, 15 mls/hr Documented by: Amiodarone HCl 360 mg/ (Dextrose) 200 mls @ 33.333 mls/hr CONT INF .Q6H [facility] Stop: 04/27/19 16:59 Last Infusion: 04/27/19 14:30 Dose: 1 mg/min, 33.3 mls/hr Documented by: Amiodarone HCl 360 mg/ (Dextrose) 200 mls @ 16.667 mls/hr CONT INF .Q12H [facility] Stop: 04/28/19 10:59 Insulin Human Lispro (Humalog Kwikpen (Bkc)) 0 unit SC ACHS [facility]; Protocol Last Admin: 04/27/19 11:29 Dose: 2 units Documented by: Melatonin (Melatonin) 3 mg PO QHS PRN PRN PRN Reason: INSOMNIA Nitroglycerin (Nitrostat) 0.4 mg SUBLINGUAL Q5M PRN PRN Reason: CARDIAC/CHEST PAIN Ondansetron HCl (Zofran) 4 mg IV Q8H PRN PRN PRN Reason: NAUSEA/VOMITING Sodium Chloride () 10 - 40 ml IV UD PRN PRN Reason: SALINE FLUSH Last Admin: 04/27/19 05:02 Dose: 10 ml Documented by: Disposition: Acute [facility] Minutes spent on discharge:: 32 Patient Condition:: Stable Meaningful Use Info Meaningful Use Diagnoses (Choose all that apply): None applicable Code Visit Inpatient E&M: 55639 Disch Hosp
--- NOTE | 2019-04-27 14:27 | NURSING ---
Report called to ISSA Roe at [facility] CVICU
== END 2019-04-27 13:45 | disposition short-term general hospital (02) ==
LOC: ED 15:48 → PCU 16:32
PROVIDERS: Physician Assistant; Specialist; Admitting Provider Family Medicine; Emergency Provider Emergency Medicine; PCP Family Medicine; Visit Provider Hospitalist
DX: I21.4 Non-ST elevation (NSTEMI) myocardial infarction (principal); E11.9 Type 2 diabetes mellitus without complications; I10 Essential (primary) hypertension; R09.02 Hypoxemia; E78.5 Hyperlipidemia, unspecified; M19.90 Unspecified osteoarthritis, unspecified site; J32.9 Chronic sinusitis, unspecified; Z85.46 Personal history of malignant neoplasm of prostate; Z87.891 Personal history of nicotine dependence; Z79.899 Other long term (current) drug therapy; Z79.84 Long term (current) use of oral hypoglycemic drugs; I25.10 Atherosclerotic heart disease of native coronary artery without angina pectoris
CPT/HCPCS: 36415; 71045; 71275; 80048; 80061; 82962; 83605; 83735; 83880; 84484; 85025; 85610; 85730; 87040; 93005; 93454; 94640; 96361; 96365; 96366; 96367; 96375; 96376; 99152; 99153; 99218; 99285; J7030; J7040; Q9967; A4216; C1769; C1894; G0378; J0295